=== PATIENT | female | born 1995 ===

== ENCOUNTER 2020-07-31 09:57 | Outpatient (REF) | payer OTHER, SELFPAY ==
[2020-07-31 16:00] LABS: CT PCR NOT DETECTED (Not Detect.); NG PCR NOT DETECTED (Not Detect.)
[2020-08-01 12:18] LABS: BV Int Neg Control Negative (Negative); BV Int Pos Control Positive (Positive)
== END 2020-07-31 09:58 | disposition home or self-care (01) ==
LOC: HO.LNP 09:57
PROVIDERS: PCP Internal Medicine; Referring Provider Internal Medicine; Visit Provider Obstetrics & Gynecology
DX: O99.211 Obesity complicating pregnancy, first trimester (principal); O34.219 Maternal care for unspecified type scar from previous cesarean delivery; Z3A.12 12 weeks gestation of pregnancy
CPT/HCPCS: 87480; 87491; 87510; 87591; 87660

== ENCOUNTER 2020-08-03 10:26 | Outpatient (REF) | payer OTHER, SELFPAY ==
--- NOTE | 2020-08-03 10:56 | US_ITS ---
EXAMINATION: OBSTETRICAL ULTRASOUND, FIRST TRIMESTER HISTORY: 25-year-old with unknown LMP NT screening COMPARISON: 11/14/2019 TECHNIQUE: Real time transabdominal imaging with color and M-mode Doppler. FINDINGS: A single, live IUP CRL of 56.4 mm c/w 12.2wks is noted. Heart Rate: 151 beats per minute. Normal yolk sac seen. NT was 1.5.mm. NB Present The embryo appears sonographically wnl for this GA. Both maternal ovaries are seen and appear normal. GESTATIONAL AGE: 1. Established GA: N/A wks 2. GA from [facility]: 12.2 wks ESTIMATED DATE OF DELIVERY: 1. Established DOUGLAS: N/A 2. DOUGLAS from [facility]: 02/13/2021 IMPRESSION: 1. A single live IUP 2. CRL consistent with 12.2 weeks of gestation giving her an DOUGLAS of the 02/13/2021. 3. Normal nuchal translucency MFM Consultation: I reviewed the ultrasound findings along with significance of NT measurement. The NT of less than 3mm is generally reassuring. However, the sensitivity for T21 detection is only 60%. I reviewed the availability of serum aneuploidy screening which includes cell-free DNA and placental protein based tests. I discussed the sensitivity, false-positive rate, and other limitations associated with each test. I also reviewed the availability of invasive diagnostic tests that are associated small but definite risk of miscarriage. We also reviewed the differences between screening tests and diagnostic tests. After our discussion, she opted for the First trimester screening that is based on cell-free DNA or non-invasive testing (NIPT). The result will be faxed to your office in approximately 7 days. A follow up at 18 weeks for survey has been scheduled. Thank you very much for this referral. Majority of this visit was spent reviewing her care and counselling her in face to face time: Time spent 20 min.
== END 2020-08-03 10:27 | disposition home or self-care (01) ==
LOC: HO.US 10:26
PROVIDERS: PCP Internal Medicine; Visit Provider Obstetrics & Gynecology
DX: Z34.81 Encounter for supervision of other normal pregnancy, first trimester (principal); Z36.82 Encounter for antenatal screening for nuchal translucency; Z3A.12 12 weeks gestation of pregnancy
CPT/HCPCS: 76813

== ENCOUNTER → 2020-08-21 10:20 | Outpatient (BNVA) | payer OTHER, SELFPAY | PROVIDERS: PCP Internal Medicine; Visit Provider Obstetrics & Gynecology | DX: Z76.89 Persons encountering health services in other specified circumstances (principal) ==

== ENCOUNTER → 2020-09-18 09:54 | Outpatient (BNVA) | payer OTHER, SELFPAY | PROVIDERS: Visit Provider Advanced Practice Midwife | DX: Z76.89 Persons encountering health services in other specified circumstances (principal) ==

== ENCOUNTER 2020-09-20 13:17 | Outpatient (REF) | payer OTHER, SELFPAY | END 2020-09-20 13:18 | disposition home or self-care (01) | LOC: HO.LAB 13:17 | PROVIDERS: PCP Internal Medicine; Visit Provider Internal Medicine | DX: Z20.828 Contact with and (suspected) exposure to other viral communicable diseases (principal) | CPT/HCPCS: C9803; U0003 ==

== ENCOUNTER 2020-10-05 09:53 | Outpatient (REF) | payer OTHER, SELFPAY ==
--- NOTE | 2020-10-05 09:57 | US_ITS ---
EXAMINATION: US OBSTETRICAL CLINICAL INFORMATION: 25-year-old at 21.2 weeks of gestation Suspected anomaly Size date discrepancy COMPARISON: 08/03/2020 TECHNIQUE: Real-time transabdominal ultrasound was performed using C1-5 megahertz transducer. FINDINGS: A single, active, fetus is seen in breech presentation. The placenta is posterior without previa, and the amniotic fluid volume is wnl. MEASUREMENTS: 1. Biparietal Diameter: 5.0 cm; 21.1 wks 2. Occipital Frontal Diameter: 6.4 cm 3. Head Circumference: 18.2 cm; 20.5 wks 4. Abdominal Circumference: 17.5 cm; 22.4 wks 5. Femur Length: 3.7 cm; 21.6 wks 6. Humerus Length: 3.64 cm; 22.5 wks 7. Tibia Length: 2.93 cm; 20.5 wks 8. Ulna Length: 3.6 cm; 23.6 wks 9. Lateral ventricle: 0.79 cm 10. Cerebellum: 2.1 cm; 20.6 wks 11. Cisterna Magna: 0.90 cm 12. Nuchal Fold: 3.8 mm 13. Heart Rate: 142 beats per minute Rt ovary: normal Lt ovary: normal Cervical length 3.7 cm on T/A. GESTATIONAL AGE: 1. Established GA: 21.2 wks 2. [facility]: 21.4 wks ESTIMATED DATE OF DELIVERY: 1. Established DOUGLAS: 02/13/2021 2. [facility]AS [facility] 02/11/2021 ANATOMY: survey was limited due to maternal body habitus and position. Visualization of the intracranial anatomy, nose, lips, profile, aortic and ductal arches were suboptimal. In addition bilateral hands were suboptimally seen. The visualized anatomy includes but not limited to: 1. Cranium: Normal 2. Intracranial anatomy: Suboptimal intracranial anatomy 3. face: Suboptimal 4. Heart: four-chamber view of the heart, ventricular septum, foramen ovale, pulmonary vein, left and right outflow tracts, three-vessel view, 3 vessel trachea view. 5. Diaphragm: Normal 6. Abdominal wall: Normal 7. Cord Insertion: Normal 8. Spine: Cervical, thoracic, lumbar, sacral. 9. Stomach: Normal size and shape 10. Right Kidney: Normal 11. Left Kidney: Normal 12. 3 vessel cord: Normal 13. Upper extremity: Hands were suboptimally seen 14. Lower extremity: Tibia, fibula, bilateral feet. 15. Bladder: Normal 16. Genitalia: Male, patient aware US/US OB /maternal detail IMPRESSION: 1. Single, living, intrauterine with appropriate biometry. 2. Limited survey due to maternal body habitus and position. No abnormalities were seen in visualized anatomy. DISCUSSION: I reviewed today's ultrasound findings. We discussed the limitations of ultrasound in diagnosing aneuploidy and other congenital abnormalities. I reviewed the differences between screening test and diagnostic test. Amniocentesis was discussed and declined. She was informed that the baseline incidence of congenital abnormalities is approximately 3-5%. Not all these conditions are diagnosable in utero. RECOMMENDATIONS: 1. A follow-up in 2-3 weeks is been scheduled. Thank you for allowing me to participate in her care. Visiting time 25 minutes. Majority of this visit was spent reviewing and discussing her care.
== END 2020-10-05 09:54 | disposition home or self-care (01) ==
LOC: HO.US 09:53
PROVIDERS: PCP Internal Medicine; Visit Provider Obstetrics & Gynecology
DX: O09.622 Supervision of young multigravida, second trimester (principal); Z36.3 Encounter for antenatal screening for malformations
CPT/HCPCS: 76811

== ENCOUNTER 2020-10-15 11:10 | Outpatient (REF) | payer OTHER, SELFPAY ==
[2020-10-15 16:26] LABS: Glucose 1 Hour 112 mg/dL
== END 2020-10-15 11:11 | disposition home or self-care (01) ==
LOC: HO.LAB 11:10
PROVIDERS: Obstetrics & Gynecology; PCP Internal Medicine; Visit Provider Advanced Practice Midwife
DX: O99.210 Obesity complicating pregnancy, unspecified trimester (principal)
CPT/HCPCS: 82951; 99212

== ENCOUNTER 2020-10-26 10:51 | Outpatient (REF) | payer OTHER, SELFPAY ==
--- NOTE | 2020-10-26 10:30 | US_ITS ---
EXAMINATION: OBSTETRICAL ULTRASOUND, Follow up HISTORY: 25-year-old at the 24.2 weeks of gestation Follow-up anatomy Size date discrepancy COMPARISON: 10/05/2020 TECHNIQUE: Real time transabdominal imaging with color and M-mode Doppler. PRESENTATION: Vertex PLACENTA LOCATION: Posterior without previa AMNIOTIC FLUID: Normal MEASUREMENTS: 1. Biparietal Diameter: 6.0 cm; 24.5 wks 2. Head Circumference: 22.8 cm; 24.6 wks 3. Abdominal Circumference: 21.97 cm; 26.3 wks 4. Femur Length: 4.4 cm; 24.4 wks 5. Heart Rate: 140 beats per minute WEIGHT: Estimated weight is 813 grams (1 lbs 13 oz) -- 90 %. Normal views of lateral cerebral ventricle, fourth ventricle, profile, nose/lips, 4ch view, LVOT, RVOT, hands, and legs. GESTATIONAL AGE: 1. Established GA: 24.2 wks 2. GA from [facility]: 25.1 wks ESTIMATED DATE OF DELIVERY: 1. Established DOUGLAS: 02/13/2021 2. DOUGLAS from [facility]: 02/07/2021 US/US OB follow up IMPRESSION: 1. A single fetus with appropriate interval growth. 2. Previously limited views of the anatomy were seen as listed above. No abnormalities were noted in visualized anatomy. 3. This completes the survey. I reviewed the limitations of ultrasound in diagnosing aneuploidy and other congenital abnormalities. Amniocentesis was again reviewed and she declined. She was informed that the baseline instance of congenital abnormalities and defects in the general population is approximately 3-5%. Not all these conditions are diagnosable in utero. RECOMMENDATIONS: 1. f/u PRN Thank you very much for this referral.
== END 2020-10-26 10:52 | disposition home or self-care (01) ==
LOC: HO.US 10:51
PROVIDERS: Visit Provider Obstetrics & Gynecology
DX: O99.212 Obesity complicating pregnancy, second trimester (principal); O26.842 Uterine size-date discrepancy, second trimester; Z3A.24 24 weeks gestation of pregnancy
CPT/HCPCS: 76816

== ENCOUNTER → 2020-10-29 10:22 | Outpatient (BNVA) | payer OTHER, SELFPAY | PROVIDERS: PCP Internal Medicine; Visit Provider Advanced Practice Midwife | DX: O09.622 Supervision of young multigravida, second trimester (principal) | CPT/HCPCS: 81003; 90686; 99212 ==

== ENCOUNTER 2020-11-22 10:11 | Outpatient (REF) | payer OTHER, SELFPAY ==
[2020-11-22 12:21] LABS: Hematocrit 31.3 % (37-47); Mean Corpuscular HGB Conc 31.9 g/dl (31.0-35.0); Mean Corpuscular Volume 87.7 fL (80-98); Mean Platelet Volume 11.4 fL (9.4-12.3); Platelet Count 230 X10*3/uL (160-400); Red Blood Count 3.57 X10*6/uL (4.20-5.50); Red Cell Distribution Width 13.4 % (11.0-16.0)
[2020-11-22 12:42] LABS: Glucose 1 Hour PP 50gm Dose 128 mg/dL (60-140)
[2020-11-23 08:30] LABS: HIV AB/AG Nonreactive (Nonreactive); HIV Num 1 0.21 S/CO (0.00-0.99)
[2020-11-23 09:15] LABS: Syphilis Screen Nonreactive (Nonreactive)
== END 2020-11-22 10:12 | disposition home or self-care (01) ==
LOC: HO.LAB 10:11
PROVIDERS: PCP Internal Medicine; Visit Provider Advanced Practice Midwife
DX: O09.622 Supervision of young multigravida, second trimester (principal); Z3A.00 Weeks of gestation of pregnancy not specified
CPT/HCPCS: 36415; 85027; 86780; 87389

== ENCOUNTER → 2020-11-26 10:38 | Outpatient (BNVA) | payer OTHER, SELFPAY | PROVIDERS: PCP Internal Medicine; Visit Provider Obstetrics & Gynecology | DX: O34.219 Maternal care for unspecified type scar from previous cesarean delivery (principal); O09.622 Supervision of young multigravida, second trimester | CPT/HCPCS: 90471; 90715; 99212 ==

== ENCOUNTER 2020-11-30 10:10 | Outpatient (REF) | payer OTHER, SELFPAY ==
--- NOTE | ~2020-11-30 | US_ITS ---
EXAMINATION: OBSTETRICAL ULTRASOUND, Follow up HISTORY: 25-year-old at the 29.2 weeks of gestation Size date discrepancy COMPARISON: 10/26/2020 TECHNIQUE: Real time transabdominal imaging with color and M-mode Doppler. PRESENTATION: Vertex PLACENTA LOCATION: Posterior without previa AMNIOTIC FLUID: JUANY 9.8 cm MEASUREMENTS: 1. Biparietal Diameter: 7.1 cm; 31.3 wks 2. Head Circumference: 28.1 cm; 30.6 wks 3. Abdominal Circumference: 26.5 cm; 30.5 wks 4. Femur Length: 5.5 cm; 29.0 wks 5. Heart Rate: 144 beats per minute WEIGHT: EFW: 1525 grams (3 lbs 6 oz) -- 7 0 %. BIOPHYSICAL PROFILE: Motion: 2 Tone: 2 Breathin Amniotic Fluid: 2 Total score: 8/8 GESTATIONAL AGE: 1. Established GA: 29.2 wks 2. GA from A: 30.4 wks ESTIMATED DATE OF DELIVERY: 1. Established DOUGLAS: 02/13/2021 2. DOUGLAS from [facility]: 02/04/2021 US/US OB follow up IMPRESSION: 1. A single active fetus is in vertex presentation 2. Size equals dates 3. Reassuring biophysical profile with normal amniotic fluid index Thank you very much for this referral.
== END 2020-11-30 10:11 | disposition home or self-care (01) ==
LOC: HO.US 10:10
PROVIDERS: PCP Internal Medicine; Visit Provider Obstetrics & Gynecology
DX: O34.219 Maternal care for unspecified type scar from previous cesarean delivery (principal); O26.843 Uterine size-date discrepancy, third trimester; Z3A.29 29 weeks gestation of pregnancy
CPT/HCPCS: 76816

== ENCOUNTER → 2020-12-10 10:34 | Outpatient (BNVA) | payer OTHER, SELFPAY | PROVIDERS: PCP Internal Medicine; Visit Provider Advanced Practice Midwife | DX: O34.219 Maternal care for unspecified type scar from previous cesarean delivery (principal); O09.622 Supervision of young multigravida, second trimester; O99.210 Obesity complicating pregnancy, unspecified trimester; O99.019 Anemia complicating pregnancy, unspecified trimester | CPT/HCPCS: 81003; 99212 ==

== ENCOUNTER → 2020-12-24 10:42 | Outpatient (BNVA) | payer OTHER, SELFPAY | PROVIDERS: PCP Internal Medicine; Visit Provider Advanced Practice Midwife | DX: O09.622 Supervision of young multigravida, second trimester (principal); Z3A.32 32 weeks gestation of pregnancy | CPT/HCPCS: 81003; 99212 ==

== ENCOUNTER → 2021-01-11 14:03 | Outpatient (BNVA) | payer OTHER, SELFPAY | PROVIDERS: PCP Internal Medicine; Visit Provider Obstetrics & Gynecology | DX: O34.219 Maternal care for unspecified type scar from previous cesarean delivery (principal); Z3A.35 35 weeks gestation of pregnancy | CPT/HCPCS: 99212 ==

== ENCOUNTER 2021-01-21 10:46 | Outpatient (REF) | payer OTHER, SELFPAY ==
[2021-01-22 10:00] LABS: CT PCR NOT DETECTED (Not Detect.); NG PCR NOT DETECTED (Not Detect.)
== END 2021-01-21 10:47 | disposition home or self-care (01) ==
LOC: HO.LAB 10:46
PROVIDERS: PCP Internal Medicine; Visit Provider Advanced Practice Midwife
DX: O09.93 Supervision of high risk pregnancy, unspecified, third trimester (principal); O99.213 Obesity complicating pregnancy, third trimester; O34.219 Maternal care for unspecified type scar from previous cesarean delivery; Z3A.36 36 weeks gestation of pregnancy
CPT/HCPCS: 81003; 87081; 87491; 87591; 99212

== ENCOUNTER → 2021-01-28 13:43 | Outpatient (BNVA) | payer OTHER, SELFPAY | PROVIDERS: PCP Internal Medicine; Visit Provider Advanced Practice Midwife | DX: O09.623 Supervision of young multigravida, third trimester (principal); Z3A.37 37 weeks gestation of pregnancy | CPT/HCPCS: 99212 ==

== ENCOUNTER → 2021-02-20 13:28 | Outpatient (BNVA) | payer OTHER, SELFPAY | PROVIDERS: Visit Provider Advanced Practice Midwife | DX: O99.345 Other mental disorders complicating the puerperium (principal); F53.0 Postpartum depression; Z3A.41 41 weeks gestation of pregnancy | CPT/HCPCS: 99212 ==

== ENCOUNTER → 2021-04-01 13:49 | Outpatient (BNVA) | payer OTHER, SELFPAY | PROVIDERS: Visit Provider Advanced Practice Midwife | DX: Z39.1 Encounter for care and examination of lactating mother (principal) | CPT/HCPCS: 99212 ==

== ENCOUNTER → 2021-04-09 14:02 | Outpatient (BNVA) | payer OTHER, SELFPAY | PROVIDERS: Visit Provider Advanced Practice Midwife | DX: Z30.017 Encounter for initial prescription of implantable subdermal contraceptive (principal) | CPT/HCPCS: 11981; 81025 ==

== ENCOUNTER → 2021-07-04 08:35 | Outpatient (BNVA) | payer OTHER, SELFPAY | PROVIDERS: PCP Internal Medicine; Referring Provider Internal Medicine; Visit Provider Internal Medicine | DX: Z39.2 Encounter for routine postpartum follow-up (principal); R07.2 Precordial pain | CPT/HCPCS: 93005; 99202 ==

== ENCOUNTER → 2021-08-09 15:34 | Outpatient (BNVA) | payer OTHER, SELFPAY | PROVIDERS: Visit Provider Advanced Practice Midwife | DX: Z30.46 Encounter for surveillance of implantable subdermal contraceptive (principal); Z91.013 Allergy to seafood | CPT/HCPCS: 99212 ==

== ENCOUNTER 2021-08-29 14:14 | Outpatient (REF) | payer OTHER, SELFPAY ==
--- NOTE | ~2021-08-29 | XR_ITS ---
EXAMINATION: XR ELBOW, LEFT CLINICAL INFORMATION: Pain COMPARISON: None TECHNIQUE: AP, lateral, and oblique views of the left elbow. FINDINGS: Bone alignment is normal. No fracture or dislocation is seen. The joint spaces are normal. There is no joint effusion. There is a 40 x 2 mm rectangular radiopaque density that projects over the soft tissues of the posterior medial upper arm. Presumably this represents something on the patient's skin or clothing. Soft tissue foreign body cannot be excluded and clinical correlation is recommended. XR/XR elbow LT min 3V IMPRESSION: Normal left elbow. 0.2 x 4 cm radiopaque linear density projecting over the soft tissues of the posterior medial upper arm. Clinical correlation recommended.
== END 2021-08-29 14:15 | disposition home or self-care (01) ==
LOC: HO.XRAY 14:14
PROVIDERS: PCP Internal Medicine; Visit Provider Internal Medicine
DX: M25.522 Pain in left elbow (principal)
CPT/HCPCS: 73080

== ENCOUNTER → 2021-09-25 14:08 | Outpatient (BNVA) | payer OTHER, SELFPAY | PROVIDERS: PCP Internal Medicine; Visit Provider Physician Assistant | DX: M77.02 Medial epicondylitis, left elbow (principal) | CPT/HCPCS: 99202 ==

== ENCOUNTER 2022-03-18 08:54 | Outpatient (REF) | payer OTHER, SELFPAY ==
--- NOTE | ~2022-03-18 | XR_ITS ---
EXAMINATION: XR HAND, RIGHT CLINICAL INFORMATION: Pain in fingers. COMPARISON: Radiographs dated 12/02/2018. TECHNIQUE: PA, lateral, and oblique views of the right hand. FINDINGS: The bones and soft tissues are normal. No fracture. Alignment is anatomic. Joint spaces are maintained. No erosions or soft tissue calcifications. XR/XR hand RT min 3V IMPRESSION: Normal right hand.
[2022-03-18 10:05] LABS: Hematocrit 37.2 % (37.0-47.0); Hemoglobin 11.8 g/dl (12.0-16.0); Mean Corpuscular HGB Conc 31.7 g/dl (31.0-35.0); Mean Corpuscular Hemoglobin 27.6 pg (27.0-33.0); Mean Corpuscular Volume 86.9 fL (80.0-98.0); Mean Platelet Volume 11.1 fL (9.4-12.3); Platelet Count 287 X10*3/uL (160-400); Red Blood Count 4.28 X10*6/uL (4.20-5.50); Red Cell Distribution Width 13.4 % (11.0-16.0); White Blood Count 8.5 X10*3/uL (4.8-10.8)
[2022-03-18 10:08] LABS: Appearance Urine HAZY; Color Urine YELLOW; Glucose Urine UA NEG (NEG); Leukocyte Esterase Urine NEG (NEG); Nitrite Urine NEG (NEG); PH 7.5 (5.0-8.0); UACC Culture Trigger NO; Urine Blood TRACE (NEG); Urine Ketones NEG (NEG); Urine Protein NEG (NEG-TRACE)
[2022-03-18 10:40] LABS: Alanine Aminotransferase 18 U/L (0-31); Albumin Level 4.1 g/dL (3.5-5.0); Alkaline Phosphatase 46 U/L (39-117); Anion Gap 11 (12-20); Aspartate Amino Transferase 18 U/L (5-31); Bilirubin Total 0.9 mg/dL (0.0-1.0); Blood Urea Nitrogen 14 mg/dL (9-16); Calcium 9.5 mg/dL (8.4-10.2); Carbon Dioxide 25 mmol/L (22-29); Chloride 109 mmol/L (96-108); Cholesterol 91 mg/dL; Estimated Glomerular Filt Rate > 60; Glucose Fasting 91 mg/dL (60-99); HDL Cholesterol 31 mg/dL; LDL Cholesterol Calculated 54 mg/dl; Potassium 4.9 mmol/L (3.3-5.1); Sodium 140 mmol/L (135-145); Total Protein 7.4 g/dL (6.5-8.0); Triglycerides 30 mg/dL
[2022-03-18 10:47] LABS: Erythrocyte Sedimentation Rate 16 MM/HR (0-20)
[2022-03-18 10:49] LABS: Bacteria Urine TRACE /LPF; RBC Urine 0-2 /HPF (0); Squamous Epithelial Cell Urine 1+ /LPF; WBC Urine 0 /HPF (0-4)
[2022-03-18 10:51] LABS: TSH reflex Free T4 0.39 uIU/mL (0.32-4.0); Vitamin D 25-OH Total 12.4 ng/mL (>30)
== END 2022-03-18 08:55 | disposition home or self-care (01) ==
LOC: HO.LAB 08:54
PROVIDERS: Absent Provider Internal Medicine; PCP Internal Medicine; Visit Provider Nurse Practitioner Family
DX: Z00.00 Encounter for general adult medical examination without abnormal findings (principal); M79.644 Pain in right finger(s); R60.0 Localized edema; E55.9 Vitamin D deficiency, unspecified; R42 Dizziness and giddiness
CPT/HCPCS: 36415; 73130; 80053; 80061; 81001; 82306; 84443; 85027; 85652; 86140

== ENCOUNTER 2022-09-05 11:42 | Outpatient (REF) | payer OTHER, SELFPAY ==
[2022-09-05 14:11] LABS: Hemoglobin 12.4 g/dl (12.0-16.0); Mean Corpuscular HGB Conc 31.8 g/dl (31.0-35.0); Mean Corpuscular Hemoglobin 28.5 pg (27.0-33.0); Mean Corpuscular Volume 89.7 fL (80.0-98.0); Mean Platelet Volume 11.7 fL (9.4-12.3); Platelet Count 317 X10*3/uL (160-400); Red Blood Count 4.35 X10*6/uL (4.20-5.50); Red Cell Distribution Width 13.4 % (11.0-16.0)
[2022-09-05 14:43] LABS: Anion Gap 10 (12-20); Blood Urea Nitrogen 8 mg/dL (9-16); Calcium 9.6 mg/dL (8.4-10.2); Carbon Dioxide 28 mmol/L (22-29); Chloride 107 mmol/L (96-108); Estimated Glomerular Filt Rate > 60; Glucose Random 83 mg/dL (60-115); Potassium 4.7 mmol/L (3.3-5.1); Sodium 140 mmol/L (135-145); Thyroid Stimulating Hormone 0.41 uIU/mL (0.32-4.0)
--- NOTE | 2022-11-19 15:19 | MHC.CARE ---
Referral submitted to CC for pt
== END 2022-09-05 11:43 | disposition home or self-care (01) ==
LOC: HO.HMGCLDS 11:42
PROVIDERS: PCP Internal Medicine; Visit Provider Internal Medicine
DX: R10.9 Unspecified abdominal pain (principal)
CPT/HCPCS: 36415; 80048; 84443; 85027

== ENCOUNTER 2023-05-19 09:26 | Outpatient (AMB) | payer OTHER, SELFPAY ==
--- NOTE | 2023-05-19 09:28 | MHC.OFFVIS ---
Intake Vital Signs 05/19/23 09:32 Height 5 ft 3 in Weight 150 lb 5.684 oz BMI 26.6 BP 109/69 Blood Pressure Location Rt brachial Position Sitting Pulse 67 Intake Visit Reasons: epigastric pain, GERD Intake Note: Patient presents to in office visit today as a new patient for epigastric pain and GERD. CC: Patient c/o epigastric pain, nausea, and feeling that when she tries to throw up a little lump form here from epigastric region. Onset 2-3 months ago. Denies other GI symptoms today. 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 PMX Depression/insomnia Bilateral lower extremity edema Medial epicondylitis of left elbow Recurrent headache *. SURGICAL HISTORY CAESAREAN SECTION * ALLERGIES Seafood * [employer] LABS: none since 08/2022 TODAY'S VISIT Onset of a couple of months of intermittent burning tight pain in the epigastrum. She has food getting stuck at the GE jxn. She has a lot of nausea but when I try to vomit a lump comes out. This in the epigastrum. Thie pain ins worse with eating and better when the stomach is empty - with all foods. This happens about every 2 weeks and will last all day. 10/10 at worst. No new medications, diet changes, or other illness proceeding the symptoms. She does not know if anyone in her family has similar problems, there is a general FHX of cancer she lost a brother to a cancer of unknown origin and her sister has breast cancer on the paternal side. Brother was 32 y /o. She will be visiting family soon and will seek more information. Her mother and 2 sisters both have had cholecystectomies. She tried avoiding fatty foods and her sx are worse with greasy foods. She has chronic CIC intermittently but lately she has been moving her bowels normally. She was on omeprazole 20mg which helped a little and then she ran out. She has not gained or lost weight of consequence. She struggles with depression/anxiety. Start omeprazole 40mg bid, but in case insurance does not cover bid will also give famotidine. Will get some basic labs, an H pylori breath test, and ultrasound and a barium swallow to further investigate the symptoms. ROV 6 weeks. PFSH Medical History Anxiety and depression Depression Exertional chest pain Exertional dyspnea Family history of brain aneurysm GERD (gastroesophageal reflux disease) Insomnia Overweight (BMI 25.0-29.9) Recurrent headache Surgical History History of delivery Family History Mother No problems noted. Father No problems noted. 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 Gender identity: Female Cognitive needs: No Hearing needs: No Vision needs: No Female Reproductive History Menstrual Age of Menarche: 11 Review of Systems Const Denies fatigue, Denies fever(s), Denies night sweats, Denies poor appetite and Denies weight loss ENT Reports Normal hearing present, Denies dental pain, Reports dysphagia, Denies hearing loss, Denies mouth pain, Denies odynophagia, Denies throat swelling, Denies tongue swelling and Reports other (Dentition adequate) Card Reports no additional complaints Resp Reports no additional complaints GI Reports abdominal pain, Denies melena, Denies bloating, Denies hematochezia, Reports constipation, Denies GI cramping, Reports dysphagia, Denies excessive flatus, Denies early satiety, Reports heartburn, Denies diarrhea, Denies nausea, Denies odynophagia, Denies vomiting and Denies hematemesis Skin/Breast Denies pruritus, Denies lesions, Denies rash and Denies jaundice Neuro Reports Normal hearing present and Denies Abnormal speech present Psych Reports anxiety, Reports depression, Denies homicidal ideation and Denies suicidal ideation Endo Denies fatigue Aller/Immun Denies throat swelling and Denies tongue swelling Physical Exam Vital Signs: Last Vital Signs Pulse 67 05/19/23 09:32 BP 109/69 05/19/23 09:32 BMI result Body Mass Index 26.6 Const General: cooperative, no acute distress, well developed and well groomed Nutritional Appearance: average body habitus and well nourished Orientation/consciousness: oriented to person, oriented to place and oriented to time Limitations: No language barrier HEENT Head: Yes normocephalic and Yes atraumatic Eyes General: appearance normal, both eyes and all related structures Pupils: Equal, round and reactive pupils present Neck Neck: Yes normal visual inspection and Yes no lymphadenopathy Thyroid: Thyroid normal Resp Effort & Inspection: normal respiratory effort and able to speak in complete sentences Auscultation: clear to auscultation bilaterally Cardio Rate: regular rate Rhythm: regular rhythm Heart sounds: Normal, physiologic split S2 sound present Peripheral pulses: radial pulses present and posterior tibial pulses present GI Inspection: No distended, No Abdominal panniculus present, Yes scar and Yes striae Palpation (GI): Soft to palpation, nontender, no guarding, not rigid and No hepatosplenomegaly present Percussion: Yes normal to percussion Auscultation: normal bowel sounds Rectal Exam - Female: deferred Abdomen image: 1. well healed scar Skin General skin exam: no rashes or lesions noted, turgor normal, skin not dry, no jaundice, No spider nevi and no striae Rashes: no rashes Nails: normal Neuro General: oriented to person, oriented to place and oriented to time Cranial nerves: Yes Equal, round and reactive pupils present and Yes Normal hearing present Speech: No Abnormal speech present Extrem General: Yes normal to inspection, No clubbing, No cyanosis and No edema Psych Appearance: grossly normal and well kempt Mental Status: mental status grossly normal Speech and movement: Normal speech and movement present Affect: normal affect Attitude: cooperative Thought process: Normal thought process present and not confabulating Thought content: Normal thought content present Insight: Limited insight present (Psych) Judgement: Limited judgement present (Psych) Assessment & Plan Assessment & Plan (1) GERD (gastroesophageal reflux disease): Code(s): K21.9 - Gastro-esophageal reflux disease without esophagitis Plan: Onset of a couple of months of intermittent burning tight pain in the epigastrum. She has food getting stuck at the GE jxn. She has a lot of nausea but when I try to vomit a lump comes out. This in the epigastrum. Thie pain ins worse with eating and better when the stomach is empty - with all foods. This happens about every 2 weeks and will last all day. 10/10 at worst. No new medications, diet changes, or other illness proceeding the symptoms. She does not know if anyone in her family has similar problems, there is a general FHX of cancer she lost a brother to a cancer of unknown origin and her sister has breast cancer on the paternal side. Brother was 32 y /o. She will be visiting family soon and will seek more information. Her mother and 2 sisters both have had cholecystectomies. She tried avoiding fatty foods and her sx are worse with greasy foods. She has chronic CIC intermittently but lately she has been moving her bowels normally. She was on omeprazole 20mg which helped a little and then she ran out. She has not gained or lost weight of consequence. She struggles with depression/anxiety. Start omeprazole 40mg bid, but in case insurance does not cover bid will also give famotidine. Will get some basic labs, an H pylori breath test, and ultrasound and a barium swallow to further investigate the symptoms. ROV 6 weeks. (2) Epigastric pain: Code(s): R10.13 - Epigastric pain (3) Abdominal pain: Code(s): R10.9 - Unspecified abdominal pain (4) Dysphagia: Code(s): R13.10 - Dysphagia, unspecified Orders: Orders Comprehensive Met. Panel Today R10.13 - Epigastric pain, R10.9 - Unspecified abdominal pain Complete Blood Count Auto Diff Today R10.13 - Epigastric pain, R10.9 - Unspecified abdominal pain H Pylori Breath Test Today R10.13 - Epigastric pain, R10.9 - Unspecified abdominal pain US abdomen complete Today R10.13 - Epigastric pain, R10.9 - Unspecified abdominal pain FL barium swallow Today R13.10 - Dysphagia, unspecified Medications: New omeprazole 40 mg PO BID 30 days 60 caps 3RF famotidine (Pepcid) 40 mg PO BEDTIME 30 tabs 6RF K21.9 - Gastro-esophageal reflux disease without esophagitis, R13.10 - Dysphagia, unspecified Coding Level of Care Code New Pt Level 3 (79888) Diagnoses GERD (gastroesophageal reflux disease) K21.9 Epigastric pain R10.13 Abdominal pain R10.9 Dysphagia R13.10
[2023-05-19 09:32] VITALS: BP 109/69; PULSE 67; BMI 26.6
== END 2023-05-19 10:40 | disposition home or self-care (01) ==
PROVIDERS: PCP Internal Medicine; Visit Provider Nurse Practitioner
DX: K21.9 Gastro-esophageal reflux disease without esophagitis (principal); R10.13 Epigastric pain; R10.9 Unspecified abdominal pain; R13.10 Dysphagia, unspecified
CPT/HCPCS: 99203

== ENCOUNTER 2023-05-19 09:26 | Outpatient (REF) | payer OTHER, SELFPAY ==
[2023-05-20 18:38] LABS: H Pylori Breath Test Positive (Negative)
== END 2023-05-19 09:27 | disposition home or self-care (01) ==
LOC: HO.LNP 09:26
PROVIDERS: PCP Internal Medicine; Visit Provider Nurse Practitioner
DX: K21.9 Gastro-esophageal reflux disease without esophagitis (principal); R10.13 Epigastric pain; R10.9 Unspecified abdominal pain; R13.10 Dysphagia, unspecified
CPT/HCPCS: 83013; 99202

== ENCOUNTER 2023-05-21 09:21 | Outpatient (REF) | payer OTHER, SELFPAY ==
[2023-05-21 09:50] LABS: MANUAL DIFF FLAG NO
[2023-05-21 10:29] LABS: Basophils Percent Auto 0.3 % (0-2); Eosinophils Absolute Auto 0.2 X10*3/uL (0.0-0.4); Eosinophils Percent Auto 1.9 % (0-4); Hematocrit 39.6 % (37.0-47.0); Hemoglobin 12.7 g/dl (12.0-16.0); Imm Gran Abs Auto 0.05 X10*3/uL (0.00-0.03); Imm Gran Pct Auto 0.6 % (0.0-0.4); Lymphocytes Absolute Auto 1.9 X10*3/uL (1.2-4.9); Lymphocytes Percent Auto 21.4 % (20-40); Mean Corpuscular HGB Conc 32.1 g/dl (31.0-35.0); Mean Corpuscular Hemoglobin 29.3 pg (27.0-33.0); Mean Corpuscular Volume 91.5 fL (80.0-98.0); Mean Platelet Volume 11.2 fL (9.4-12.3); Monocytes Absolute Auto 0.5 X10*3/uL (0.1-1.2); Monocytes Percent Auto 5.6 % (2-11); Neutrophils Absolute Auto 6.4 x10*3/uL (2.0-8.3); Neutrophils Percent Auto 70.2 % (45-73); Platelet Count 247 X10*3/uL (160-400); Red Blood Count 4.33 X10*6/uL (4.20-5.50); Red Cell Distribution Width 13.4 % (11.0-16.0); White Blood Count 9.1 X10*3/uL (4.8-10.8)
[2023-05-21 11:10] LABS: Alanine Aminotransferase 14 U/L (0-31); Albumin Level 4.3 g/dL (3.5-5.0); Alkaline Phosphatase 50 U/L (39-117); Anion Gap 13 (12-20); Aspartate Amino Transferase 16 U/L (5-31); Bilirubin Total 0.7 mg/dL (0.0-1.0); Blood Urea Nitrogen 13 mg/dL (9-16); Calcium 9.3 mg/dL (8.4-10.2); Carbon Dioxide 23 mmol/L (22-29); Chloride 108 mmol/L (96-108); Estimated Glomerular Filt Rate > 60; Glucose Random 80 mg/dL (60-115); Potassium 4.5 mmol/L (3.3-5.1); Sodium 139 mmol/L (135-145); Total Protein 7.7 g/dL (6.5-8.0)
== END 2023-05-21 09:22 | disposition home or self-care (01) ==
LOC: HO.LAB 09:21
PROVIDERS: PCP Internal Medicine; Visit Provider Nurse Practitioner
DX: R10.13 Epigastric pain (principal)
CPT/HCPCS: 36415; 80053; 85025

== ENCOUNTER 2023-05-29 07:02 | Outpatient (AMB) | payer OTHER, SELFPAY ==
--- NOTE | 2023-05-29 07:03 | A.OFFPC_ITS ---
Vital Signs 05/29/23 07:04 Height 5 ft 3 in Weight 150 lb BMI 26.6 BP 114/62 Blood Pressure Location Lt brachial Position Sitting Pulse 59 Pulse Source Pulse Oximeter Pulse Oximetry (%) 97 Oxygen Delivery Method Room Air Intake Visit Reasons: pain right ankle Allergies No Known Drug Allergies Allergy (Unknown, Verified 05/29/23 07:04) Unknown SEAFOOD Allergy (Unknown, Uncoded 05/29/23 07:04) RASH Tobacco use date assessed: 02/24/23 Dental Screening Dental Screen Date: 05/29/23 Did you have a dental visit in the last 12 months?: Yes Did you have a dental problem in the last 6 months where you did not have access to dental care?: No Was dental information given to patient?: Patient has dentist HPI HPI Comments History of Present Illness0 Details 28-year-old female past medical history of depression, GERD and insomnia.?Patient of Dr. Bailey, patient presents today for same-day visit right ankle pain x 2 weeks. Patient unsure if she possibly twisted her ankle the wrong way. Patient complaining of pain to the medial side of posterior ankle, mild soft tissue swelling noted, no erythema or warmth. Patient reports pain is a 10/10 like a pulling pain. Patient states tried [id number] Tylenol and ibuprofen with minimal relief of pain. [facility] Medical History Anxiety and depression Depression Exertional chest pain Exertional dyspnea Family history of brain aneurysm GERD (gastroesophageal reflux disease) Insomnia Overweight (BMI 25.0-29.9) Recurrent headache Surgical History History of delivery Family History Mother No problems noted. Father No problems noted. 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 1. Little interest or pleasure in doing things: several days 2. Feeling down, depressed, or hopeless: several days 3. Trouble falling or staying asleep, or sleeping too much: several days 4. Feeling tired or having little energy: several days 5. Poor appetite or overeating: not at all 6. Feeling bad about yourself - or that you are a failure or have let yourself or your family down: not at all 7. Trouble concentrating on things, such as reading the newspaper or watching television: not at all 8. Moving or speaking so slowly that other people could have noticed. Or the opposite - being so fidgety or restless that you have been moving around a lot more than usual: not at all 9. Thoughts that you would be better off or of hurting yourself in some w ay: not at all Total score: 4 Depression Screening Interpretation: Positive (Rx helping) Depression Screening Follow-up: Existing condition and In treatment 29371 - PHQ-9 Billing: Yes Source: Developed by Drs. Raúl Barraza, Maryann Mane, Speedy Cota and colleagues, with an educational carlos from [employer] Thrive Questionnaire Date Thrive assessed: 02/24/23 AUDIT C Alcohol Use Questionnaire (AUDIT-C) 1. How often do you have a drink containing alcohol?: Never 3. How often do you have six or more drinks on one occasion?: Never Total Score: 0 Score Reviewed/Action Taken: Yes GT-7 AMB Questionnaire GT-7 Date GT - 7 assessed: 02/24/23 Source: Developed by Drs. Ralú Barraza, Speedy Agosto and colleagues, with an educational carlos from [employer] Review of Systems Const Denies chills, Denies fatigue, Denies fever(s) and Denies poor appetite Eyes Denies no additional complaints ENT Reports Normal hearing present Card Denies chest pain, Denies syncope, Denies rapid heart rate and Denies dyspnea Resp Denies cough and Denies dyspnea GI Denies change in stool character, Denies constipation, Denies diarrhea, Denies nausea and Denies vomiting Denies urinary frequency, Denies dysuria and Denies urinary urgency Musc Reports arthralgias (right ankle pain ) Neuro Reports Normal hearing present, Denies confusion and Denies syncope Psych Denies confusion Endo Denies fatigue Physical exam (Primary Care) Vital Signs: Oxygen Delivery Method Room Air 05/29/23 07:04 Tobacco/Smoking Status: Tobacco use Status Tobacco use date assessed 02/24/23 02/24/23 15:05 Patient Tobacco Use Status Never used Tobacco 02/24/23 15:05 e-Cigarette/Vaping Use Never Used 02/24/23 15:05 Depression Screening Interpretation: Positive (Rx helping) Depression Screening Follow-up: Existing condition and In treatment Thrive Assessment: Date of Thrive Assessment Date Thrive assessed 02/24/23 02/24/23 15:05 Const General: No confusion Orientation/consciousness: No confusion HENMT Head: Yes normocephalic and Yes atraumatic Eyes Conjunctivae: conjunctivae normal Chest Chest palpation & inspection: normal inspection of the chest Resp Effort & Inspection: normal respiratory effort Auscultation: clear to auscultation bilaterally, no crackles, no rhonchi and no wheezes Cardio Rate: regular rate Rhythm: regular rhythm Heart sounds: S1 normal heart sound present and S2 normal heart sound present GI Inspection: Yes normal to inspection Neuro General: No confusion Cranial nerves: Yes Normal hearing present Extrem General: No edema Right lower extremity: normal to inspection and ankle Details: tenderness Location: of the anterior talofibular ligament, swelling (mild soft tissue swelling ) Details: laterally and abnormal ROM Details: pain with active ROM and pain with passive ROM; no unusual warmth, no ecchymosis and no crepitus Left lower extremity: normal to inspection and full ROM Assessment and Plan Assessment & Plan (1) Acute right ankle pain: Code(s): M25.571 - Pain in right ankle and joints of right foot Plan: Likely related to right ankle strain, will obtain x-rays to rule out acute injury. Ibuprofen 600 mg t.i.d. as needed for pain and inflammation sent to patient's pharmacy. Please take medication with food to avoid GI upset. Patient advised to hold taking her bismuth while on ibuprofen. Patient educated on RICE therapy. Signs and symptoms reviewed with patient when to follow-up with PCP or seek medical attention. Plan Keep scheduled follow-up with PCP or follow-up sooner if needed. Orders: Orders XR ankle RT 2V Today M25.571 - Pain in right ankle and joints of right foot Medications: New ibuprofen 600 mg PO Q8H PRN 20 tabs 0RF pain M25.571 - Pain in right ankle and joints of right foot Coding Level of Care Code Est Pt Level 3 (45081) Diagnoses Acute right ankle pain M25.571
[2023-05-29 07:04] VITALS: BP 114/62; PULSE 59; O2SAT 97; BMI 26.6
== END 2023-05-29 07:43 | disposition home or self-care (01) ==
PROVIDERS: PCP Internal Medicine; Visit Provider Nurse Practitioner Family
DX: M25.571 Pain in right ankle and joints of right foot (principal)
CPT/HCPCS: 99213

== ENCOUNTER → 2023-06-30 10:43 | Outpatient (BNVA) | payer OTHER, SELFPAY | PROVIDERS: PCP Internal Medicine; Visit Provider Nurse Practitioner ==

== ENCOUNTER 2023-07-02 11:02 | Outpatient (AMB) | payer OTHER, SELFPAY ==
--- NOTE | 2023-07-02 11:07 | MHC.OFFVIS ---
Intake Vital Signs 07/02/23 11:08 Height 5 ft 3 in Weight 149 lb 7.574 oz BMI 26.5 BP 112/68 Blood Pressure Location Rt brachial Position Sitting Pulse 71 Intake Visit Reasons: Follow up H pylori Intake Note: Patient presents to in office visit today in follow up of H pylori. CC: Patient with c/o epigastric pain, nausea, and lump from epigastric region. Pt states she has about two more days of abx to complete course. Mr Teacher Required: No Accompanied by: Self / Same As Patient Allergies No Known Drug Allergies Allergy (Unknown, Verified 07/02/23 11:12) Unknown SEAFOOD Allergy (Unknown, Uncoded 05/29/23 07:04) RASH HPI Follow up H pylori HPI Details Assessment & Plan (1) GERD (gastroesophageal reflux disease): Code(s): K21.9 - Gastro-esophageal reflux disease without esophagitis Plan: Onset of a couple of months of intermittent burning tight pain in the epigastrum. She has food getting stuck at the GE jxn. She has a lot of nausea but when I try to vomit a lump comes out. This in the epigastrum. Thie pain ins worse with eating and better when the stomach is empty - with all foods. This happens about every 2 weeks and will last all day. 10/10 at worst. No new medications, diet changes, or other illness proceeding the symptoms. She does not know if anyone in her family has similar problems, there is a general FHX of cancer she lost a brother to a cancer of unknown origin and her sister has breast cancer on the paternal side. Brother was 32 y /o. She will be visiting family soon and will seek more information. Her mother and 2 sisters both have had cholecystectomies. She tried avoiding fatty foods and her sx are worse with greasy foods. She has chronic CIC intermittently but lately she has been moving her bowels normally. She was on omeprazole 20mg which helped a little and then she ran out. She has not gained or lost weight of consequence. She struggles with depression/anxiety. Start omeprazole 40mg bid, but in case insurance does not cover bid will also give famotidine. Will get some basic labs, an H pylori breath test, and ultrasound and a barium swallow to further investigate the symptoms. ROV 6 weeks. (2) Epigastric pain: Code(s): R10.13 - Epigastric pain (3) Abdominal pain: Code(s): R10.9 - Unspecified abdominal pain (4) Dysphagia: Code(s): R13.10 - Dysphagia, unspecified Orders: Orders Comprehensive Met. Panel Today R10.13 - Epigastric pain, R10.9 - Unspecified abdominal pain Complete Blood Count Auto Diff Today R10.13 - Epigastric pain, R10.9 - Unspecified abdominal pain H Pylori Breath Test Today R10.13 - Epigastric pain, R10.9 - Unspecified abdominal pain US abdomen complete Today R10.13 - Epigastric pain, R10.9 - Unspecified abdominal pain FL barium swallow Today R13.10 - Dysphagia, unspecified Medications: New omeprazole 40 mg PO BID 30 days 60 caps 3RF famotidine (Pepcid) 40 mg PO BEDTIME 30 tabs 6RF K21.9 - Gastro-esophageal reflux disease without esophagitis, R13.10 - Dysphagia, unspecified LABS:: ULTRASOUND OF THE ABDOMEN Scheduled for 07/16 THE BARIUM SWALLOW TODAY'S VISIT . Her H pylori breath test was positive and I started her on a course of Flagyl in tetracycline quadruple therapy. She has 2 days left of the quad therapy, she still has gastric pain and early satiety. ? if this is a resistant HP strain vs a different pathology at play. Has US upcoming 07/16, will see her back after that and test for eradication. 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 ROV after 07.16 [facility] Medical History GERD (gastroesophageal reflux disease) Overweight (BMI 25.0-29.9) Depression Insomnia Exertional chest pain Exertional dyspnea Family history of brain aneurysm Recurrent headache Anxiety and depression Surgical History History of delivery Family History Mother No problems noted. Father No problems noted. 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 Gender identity: Female Cognitive needs: No Hearing needs: No Vision needs: No Female Reproductive History Menstrual Age of Menarche: 11 Review of Systems Const Denies fatigue, Denies fever(s), Denies night sweats, Reports poor appetite and Denies weight loss ENT Reports Normal hearing present, Denies dental pain, Denies dysphagia, Denies hearing loss, Denies mouth pain, Denies odynophagia, Denies throat swelling, Denies tongue swelling and Reports other (Dentition adequate) Card Reports no additional complaints Resp Reports no additional complaints GI Reports abdominal pain, Denies melena, Denies bloating, Denies hematochezia, Denies constipation, Denies GI cramping, Denies dysphagia, Denies excessive flatus, Reports early satiety, Reports heartburn, Denies diarrhea, Denies nausea, Denies odynophagia, Denies vomiting and Denies hematemesis Skin/Breast Denies pruritus, Denies lesions, Denies rash and Denies jaundice Neuro Reports Normal hearing present and Denies Abnormal speech present Endo Denies fatigue Aller/Immun Denies throat swelling and Denies tongue swelling Physical Exam Vital Signs: Last Vital Signs Pulse 71 07/02/23 11:08 BP 112/68 07/02/23 11:08 BMI result Body Mass Index 26.5 Const General: cooperative, no acute distress, well developed and well groomed Nutritional Appearance: average body habitus and well nourished Orientation/consciousness: oriented to person, oriented to place and oriented to time Limitations: No language barrier HEENT Head: Yes normocephalic and Yes atraumatic Eyes General: appearance normal, both eyes and all related structures Pupils: Equal, round and reactive pupils present Neck Neck: Yes normal visual inspection and Yes no lymphadenopathy Thyroid: Thyroid normal Resp Effort & Inspection: normal respiratory effort and able to speak in complete sentences Auscultation: clear to auscultation bilaterally Cardio Rate: regular rate Rhythm: regular rhythm Heart sounds: Normal, physiologic split S2 sound present Peripheral pulses: radial pulses present and posterior tibial pulses present GI Inspection: No distended and No Abdominal panniculus present Palpation (GI): Soft to palpation, nontender, no guarding, not rigid and No hepatosplenomegaly present Percussion: Yes normal to percussion Auscultation: normal bowel sounds Rectal Exam - Female: deferred Skin General skin exam: no rashes or lesions noted, turgor normal, skin not dry, no jaundice, No spider nevi and no striae Rashes: no rashes Nails: normal Neuro General: oriented to person, oriented to place and oriented to time Cranial nerves: Yes Equal, round and reactive pupils present and Yes Normal hearing present Speech: No Abnormal speech present Extrem General: Yes normal to inspection, No clubbing, No cyanosis and No edema Psych Appearance: grossly normal and well kempt Mental Status: mental status grossly normal Speech and movement: Normal speech and movement present Affect: normal affect Attitude: cooperative Thought process: Normal thought process present and not confabulating Thought content: Normal thought content present Insight: Limited insight present (Psych) Judgement: Limited judgement present (Psych) Assessment & Plan Assessment & Plan (1) H. pylori infection: Code(s): A04.8 - Other specified bacterial intestinal infections Plan: ULTRASOUND OF THE ABDOMEN Scheduled for 07/16 THE BARIUM SWALLOW TODAY'S VISIT . Her H pylori breath test was positive and I started her on a course of Flagyl in tetracycline quadruple therapy. She has 2 days left of the quad therapy, she still has gastric pain and early satiety. ? if this is a resistant HP strain vs a different pathology at play. Has US upcoming 07/16, will see her back after that and test for eradication. 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 ROV after 07.16 (2) Epigastric pain: Code(s): R10.13 - Epigastric pain (3) GERD (gastroesophageal reflux disease): Code(s): K21.9 - Gastro-esophageal reflux disease without esophagitis Coding Level of Care Code Est Pt Level 3 (87170) Diagnoses H. pylori infection A04.8 Epigastric pain R10.13 GERD (gastroesophageal reflux disease) K21.9
[2023-07-02 11:08] VITALS: BP 112/68; PULSE 71; BMI 26.5
== END 2023-07-02 12:48 | disposition home or self-care (01) ==
PROVIDERS: PCP Internal Medicine; Visit Provider Nurse Practitioner
DX: A04.8 Other specified bacterial intestinal infections (principal); R10.13 Epigastric pain; K21.9 Gastro-esophageal reflux disease without esophagitis
CPT/HCPCS: 99213

== ENCOUNTER → 2023-07-02 11:02 | Outpatient (BNVA) | payer OTHER, SELFPAY | PROVIDERS: PCP Internal Medicine; Visit Provider Nurse Practitioner | DX: A04.8 Other specified bacterial intestinal infections (principal); R10.13 Epigastric pain; K21.9 Gastro-esophageal reflux disease without esophagitis | CPT/HCPCS: 99212 ==

== ENCOUNTER 2023-07-17 10:49 | Outpatient (REF) | payer OTHER, SELFPAY ==
--- NOTE | ~2023-07-17 | US_ITS ---
EXAMINATION: US ABDOMEN COMPLETE CLINICAL INFORMATION: Epigastric abdominal pain. COMPARISON: Abdominal ultrasound 12/15/2017. TECHNIQUE: Real-time imaging of the abdominal viscera. FINDINGS: PANCREAS: Normal. ABDOMINAL AORTA: The proximal, mid, and distal segments are normal in caliber. INFERIOR VENA CAVA: Visualized portions are normal. LIVER: Normal. The liver is normal in size. The liver contour is normal. Parenchymal echogenicity is normal. No focal hepatic lesion. There is no intrahepatic biliary duct dilatation seen. GALLBLADDER: Normal. The gallbladder is physiologically distended without evidence of stones, sludge, polyps, wall thickening or pericholecystic fluid. COMMON BILE DUCT: Normal in caliber measuring 0.3 cm in diameter. RIGHT KIDNEY: 3 mm nonobstructing calculus in the lower pole. No hydronephrosis or focal parenchymal lesions. The kidney measures 10.8 cm in maximum dimension. LEFT KIDNEY: Normal. No hydronephrosis. No renal calculi or focal parenchymal lesions. The kidney measures 10.4 cm in maximum dimension. SPLEEN: Normal. The spleen measures 9.2 cm in maximum dimension. FREE FLUID: None. US/US abdomen complete IMPRESSION: 3 mm nonobstructing calculus in the lower right kidney. No hydronephrosis. Otherwise normal abdominal ultrasound.
== END 2023-07-17 10:50 | disposition home or self-care (01) ==
LOC: HO.HMGCX 10:49
PROVIDERS: PCP Internal Medicine; Visit Provider Nurse Practitioner
DX: R13.10 Dysphagia, unspecified (principal); R10.9 Unspecified abdominal pain
CPT/HCPCS: 76700

== ENCOUNTER 2023-08-25 13:05 | Outpatient (AMB) | payer OTHER, SELFPAY ==
--- NOTE | 2023-08-25 13:11 | MHC.PC.OV ---
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 Accompanied by: Child Allergies No Known Drug Allergies Allergy (Unknown, Verified 08/25/23 13:19) Unknown SEAFOOD Allergy (Unknown, Uncoded 08/25/23 13:19) RASH Medication List - Last Reconciled 08/25/23 by JANEE Carey bismuth subsalicylate (Bismuth) 2 tabs PO QID 14 days famotidine (Pepcid) 40 mg PO BEDTIME ibuprofen 600 mg PO Q8H PRN omeprazole 40 mg PO BID Tobacco use date assessed: 08/25/23 Dental Screening Dental Screen Date: 08/25/23 Did you have a dental visit in the last 12 months?: No Did you have a dental problem in the last 6 months where you did not have access to dental care?: No Was dental information given to patient?: Patient has dentist HPI Finger Infection HPI Details Patient is a 28-year-old female who presents today for the same day visit due to right hand 4th finger infection for the past [address] Bailey. Patient denies finger injury, reports pruritic rash, redness, tenderness to palpation. Has used [id number] creams with no improvement. She did not have this in the past. In addition, she reports right outer ankle tender bump for the past some time, did not use anything for pain. [facility] Medical History GERD (gastroesophageal reflux disease) Overweight (BMI 25.0-29.9) Depression Insomnia Exertional chest pain Exertional dyspnea Family history of brain aneurysm Recurrent headache Anxiety and depression Surgical History History of delivery Family History Mother No problems noted. Father No problems noted. 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 Raúl Barraza, Maryann Mane, Speedy Cota and colleagues, with an educational carlos from [employer]. Review of Systems Const Denies body aches, Denies chills, Denies fever(s) and Denies headache(s) ENT Denies dizziness, Denies otalgia, Denies headache(s) and Denies sore throat Card Denies chest pain, Denies lightheadedness and Denies dyspnea Resp Denies cough, Denies dyspnea and Denies wheezing GI Denies abdominal pain Denies dysuria Musc Denies myalgias Skin/Breast Reports as per HPI and Reports rash Neuro Denies dizziness and Denies headache(s) Aller/Immun Denies wheezing Physical exam (Primary Care) Vital Signs: Last Vital Signs BP 130/60 08/25/23 13:12 BMI result Body Mass Index 27.0 Tobacco/Smoking Status: Tobacco use Status Tobacco use date assessed 08/25/23 08/25/23 13:18 Patient Tobacco Use Status Never used Tobacco 08/25/23 13:18 e-Cigarette/Vaping Use Never Used 08/25/23 13:18 Thrive Assessment: Date of Thrive Assessment Date Thrive assessed 02/24/23 08/25/23 13:18 Const General: cooperative and no acute distress Orientation/consciousness: patient oriented x3 HENMT Head: Yes normocephalic and Yes atraumatic Throat: Yes posterior oropharynx normal Eyes General: appearance normal, both eyes and all related structures Neck Neck: Yes normal visual inspection and Yes full ROM Resp Effort & Inspection: normal respiratory effort and able to speak in complete sentences Auscultation: clear to auscultation bilaterally, no crackles, no rales, no rhonchi and no wheezes Cardio Rate: regular rate Rhythm: regular rhythm Heart sounds: S1 normal heart sound present and S2 normal heart sound present GI Auscultation: normal bowel sounds Skin Other: Right hand 4th finger lateral aspect 1.5cm slightly erythematous area, 2 fissures noted, no discharge, tender to palpation, patient also reports pruritus, mild warmth Right outer ankle no palpable lump noted, patient reports mild tenderness - encouraged to try [id number] ibuprofen 400 mg every 8 hours as needed Neuro General: patient oriented x3 Gait exam (Neuro): Normal gait present Extrem General: Yes full ROM Assessment and Plan Assessment & Plan (1) Rash of finger: Code(s): R21 - Rash and other nonspecific skin eruption Plan: Will cover with antibiotic for bacterial etiology due to warmth and redness Suspect also eczema-start triamcinolone daily for 14 days-do not use cream on face Keep appointment with PCP in couple weeks as scheduled or follow-up sooner as needed Patient agreed with the plan Medications: New cephalexin 500 mg PO Q12H 7 days 14 tabs 0RF R21 - Rash and other nonspecific skin eruption triamcinolone acetonide 0.1% 1 appl topical DAILY 14 days 15 grams 0RF R21 - Rash and other nonspecific skin eruption Coding Level of Care Code Est Pt Level 3 (37346) Diagnoses Rash of finger R21
[2023-08-25 13:12] VITALS: BP 130/60; BMI 27.0
== END 2023-08-25 13:28 | disposition home or self-care (01) ==
PROVIDERS: PCP Internal Medicine; Visit Provider Nurse Practitioner Family
DX: R21 Rash and other nonspecific skin eruption (principal)
CPT/HCPCS: 99213

== ENCOUNTER 2023-11-06 10:02 | Outpatient (AMB) | payer OTHER, SELFPAY ==
--- NOTE | 2023-11-06 11:04 | AM.OFFWIN_ITS ---
Intake Vital Signs 11/06/23 11:05 Height 5 ft 3 in Weight 148 lb 2 oz BMI 26.2 BP 110/62 Blood Pressure Location Lt brachial Position Sitting Pulse 65 Pulse Source Pulse Oximeter Temp 98.3 F Temp Source Oral Pulse Oximetry (%) 100 Oxygen Delivery Method Room Air Intake Visit Reasons: EST/right hand ring finger pain ([phone]) Intake Note: Pt is here today for Rt finger pain, pt states it started with an itchiness. Patient Tobacco Use Status: Never used Tobacco Allergies No Known Drug Allergies Allergy (Unknown, Verified 11/06/23 11:05) Unknown SEAFOOD Allergy (Unknown, Uncoded 08/25/23 13:19) RASH Do you need a note to return to daycare/school/sports/work: Yes HPI HPI Comments History of Present Illness Details This is a 28-year-old female who presented to the walk-in clinic complaining of right finger pain. She states she has a few cut/scrapes and a r dong on her right 4th finger. She states she was evaluated by her primary care physician who thought she might have eczema and she was given a steroid cream; however, she states that the rash worsened with steroid cream and she now has some erythema of her finger as well as pain extending from her finger down into her wrist. She denies any trauma or injury to the finger. She denies any fevers or chills. She is otherwise feeling well. [facility] Medical History GERD (gastroesophageal reflux disease) Overweight (BMI 25.0-29.9) Depression Insomnia Exertional chest pain Exertional dyspnea Family history of brain aneurysm Recurrent headache Anxiety and depression Surgical History History of delivery Family History Mother No problems noted. Father No problems noted. 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 Gender identity: Female Cognitive needs: No Hearing needs: No Vision needs: No Female Reproductive History Menstrual Age of Menarche: 11 Review of Systems Const All systems reviewed & are unremarkable except as noted in HPI and below Reports no additional complaints Eyes Reports no additional complaints ENT Reports no additional complaints Card Reports no additional complaints Resp Reports no additional complaints GI Reports no additional complaints Reports no additional complaints Musc Reports no additional complaints Skin/Breast Reports system reviewed and no additional complaints, except as documented Neuro Reports no additional complaints Psych Reports no additional complaints Endo Reports no additional complaints Wil/Lymph Reports no additional complaints Aller/Immun Reports no additional complaints Physical Exam Vital Signs: Last Vital Signs Temp 98.3 F 11/06/23 11:05 Pulse 65 11/06/23 11:05 BP 110/62 11/06/23 11:05 Pulse Ox 100 11/06/23 11:05 Oxygen Delivery Method Room Air 11/06/23 11:05 BMI result Body Mass Index 26.2 Const Other: Vital signs reviewed. Constitutional: Non-toxic appearing. No acute distress. Well-developed and well-nourished. HEENT: Normocephalic and atraumatic. Skin: Warm and dry. No rashes or lesions noted. Neck: Full and painless range of motion. No cervical lymphadenopathy. Cardio: Regular rate. No lower extremity edema. No JVD. Pulmonary: No respiratory distress. No accessory muscle usage. Gastrointestinal: Soft, nontender, and nondistended in all 4 quadrants. Musculoskeletal: There is mild swelling of her right 4th finger with to excoriation/abrasions of her right finger with surrounding erythema. There is also erythema of her right 4th finger. Neuro: Alert and oriented x4. Cranial nerves 2-12 grossly intact. No focal deficits appreciated. Psych: Normal mood and affect. Assessment & Plan Assessment & Plan (1) Cellulitis of finger of right hand: Code(s): L03.011 - Cellulitis of right finger Plan: This is a 28-year-old female who presented to the office complaining of right 4th finger pain, erythema, and swelling. History and physical appears to be consistent with cellulitis of the right 4th finger. Given pain extending into her right wrist, I have ordered an x-ray of the right hand to rule out a deep tissue infection although I consider this very unlikely. Patient was sent home on oral Keflex 500 mg 4 times daily x5 days as well as p.o. ibuprofen 800 mg 3 times daily x1 week for anti-inflammatory purposes. Patient was advised to follow-up here or proceed to the emergency room if she were to develop fever/chills, systemic symptoms, worsening erythema, or lymphangitic streaking. Patient verbalizes her understanding and she is in agreement with the plan. Orders: Orders XR hand RT 2V Today M79.644 - Pain in right finger(s) Medications: New cephalexin 500 mg PO QID 20 caps 0RF ibuprofen 800 mg PO Q8H 21 tabs 0RF Coding Level of Care Code Est Pt Level 3 (39223) Diagnoses Cellulitis of finger of right hand L03.011
[2023-11-06 11:05] VITALS: BP 110/62; PULSE 65; TEMP 36.8; O2SAT 100; BMI 26.2
== END 2023-11-06 12:09 | disposition home or self-care (01) ==
PROVIDERS: PCP Internal Medicine; Visit Provider Physician Assistant Medical
DX: L03.011 Cellulitis of right finger (principal)
CPT/HCPCS: 99213

== ENCOUNTER 2023-11-06 11:40 | Outpatient (REF) | payer OTHER, SELFPAY ==
--- NOTE | ~2023-11-06 | XR_ITS ---
EXAMINATION: XR HAND, RIGHT CLINICAL INFORMATION: Right finger pain. COMPARISON: Right hand radiographs dated 03/18/2022. TECHNIQUE: PA, lateral, and oblique views of the right hand. FINDINGS: No fracture or dislocation. Normal carpal alignment. No significant joint space narrowing or marginal osteophytes. No osseous erosion. No periarticular osteopenia. No abnormal soft tissue calcification. XR/XR hand RT 2V IMPRESSION: Unremarkable examination.
== END 2023-11-06 11:41 | disposition home or self-care (01) ==
LOC: HO.HMGCX 11:40
PROVIDERS: Visit Provider Physician Assistant Medical
DX: M79.644 Pain in right finger(s) (principal)
CPT/HCPCS: 73120

== ENCOUNTER 2024-07-07 12:52 | Outpatient (AMB) | payer OTHER, SELFPAY ==
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
[2024-07-07 13:11] VITALS: BP 110/58; PULSE 77; O2SAT 97; BMI 27.1
== END 2024-07-07 13:20 | disposition home or self-care (01) ==
PROVIDERS: PCP Internal Medicine; Visit Provider Nurse Practitioner Family
DX: M54.6 Pain in thoracic spine (principal)

== ENCOUNTER → 2024-07-07 12:52 | Outpatient (BNVA) | payer OTHER, SELFPAY | PROVIDERS: PCP Internal Medicine; Visit Provider Nurse Practitioner Family | DX: M54.6 Pain in thoracic spine (principal) | CPT/HCPCS: 99212 ==

== ENCOUNTER 2024-11-14 09:06 | Outpatient (AMB) | payer OTHER, SELFPAY ==
[2024-11-14 09:33] VITALS: BP 112/62; PULSE 76; TEMP 37.3; O2SAT 98; BMI 27.9
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
--- OUTSIDE RECORDS SUMMARY | 2024-11-14 13:24 | XMS_ITS | Clinical Summary ---
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 11/28/2015 Active meclizine (ANTIVERT) 25 mg tablet Take 1 Tab by mouth 3 times daily as needed for Other (dizziness). 09/05/2013 Active sertraline (ZOLOFT) 50 mg tablet Take 50 mg by mouth daily. Active traZODone (DESYREL) 100 mg tablet Take 100 mg by mouth at bedtime. Active Active Problems Problem Noted Date Diagnosed Date Anemia in , third trimester 02/06/2021 Previous delivery affecting 0 02/06/2021 Maternal obesity syndrome in third trimester Short interval between pregn ancies affecting , antepartum 02/06/2021 Unequal leg length 04/20/2014 Pelvic inflammatory disease 07/22/2013 Immunizations Name Administration Dates Next Due DTP 08/19/2000, 7,09/06/1996,07/29,1995 [id number] (Pentacel) 2mo to less than 5yo 09/27/1997,09/06/1996,07/29/1996,05/19 HPV, Quadrivalent 02/18/2011,02/07/2010,09/15/20 07 Hepatitis A Pediatric (Havri x; Vaqta) 12mo to less than 19yo 02/18/2011,02/07/2010 Hepatitis B (Xqprxll-S-Bqlvf , Recombivax HB-Adult) 19yo and older 09/27/1997,12/09/1996,1995 Hib (HbOC) 09/27/1997, 6,07/29/1996,05/19 MMR, measles mumps and rubel la Live (Priorix; M-M-R II) 12mo and older 08/19/2000,07/29/1996 Meningococcal MCV4P 02/07/2010 OPV 08/19/2000, 6,07/29/1996,05/19 Tdap Tetanus diptheria acell ular pertussis (Boostrix; Adacel) 7yo and older 09/15/2007 Varicella live (Varivax) 12m o and older 09/27/1997,07/29/1996 Surgical History Surgery Date Site/Laterality Comments SECTION N/A PROCEDURE: HISTORICAL DELIVERY; COMMENT: x3 Medical History Medical History Date Comments Unequal leg length 04/20/2014 DX:Unequal le g length Family History Medical History Relation Name Comments Breast cancer Maternal Grandmother age 60 s Diabetes Paternal Grandfather Diabetes Paternal Grandmother Relation Name Status Comments Father Alive Maternal Grandfather Maternal Grandmother Mother Alive Paternal Grandfather Paternal Grandmother Sister Alive heart problems Social History Tobacco Use Types Packs/Day Years Used Date Smoking Tobacco: Never Smokeless Tobacco: Never Alcohol Use Standard Drinks/Week Comments No 0 (1 standard drink = 0.6 oz pur e alcohol) Sex and Gender Information Value Date Recorded Sex Assigned at Not on file Gender Identity Not on file Sexual Orientation Not on file Obstetrics History Plan of Treatment Health Maintenance Due Date Last Done Comments Cervical Cancer Screening: Pap Smear 2016 DTaP,Tdap,and Td Vaccines (7 - Td or Tdap) 09/15/2017 09/15/2007, 08/19/2000, 09/27/1997, Additional history exists Depression Screening 04/28/2022 HIV Screening 04/28/2022 Hepatitis C Screening 04/28/2022 Social Influencers of Health Screening 04/28/2022 COVID-19 Vaccine ( season) 2024 Influenza Vaccine (#1) 2024 HIB Vaccines Completed 09/27/1997, 09/18, 09/06/1996, Additional history exists Hepatitis B Vaccines Completed 09/27/1997, 12/09/1996, 1995 Varicella Vaccines Completed 09/27/1997, 07/29/1996 IPV Vaccines Completed 08/19/2000, 09/18, 09/06/1996, Additional history exists MMR Vaccines Completed 08/19/2000, 07/29/1996 Meningococcal ACWY Vaccine Aged Out 02/07/2010 N o longer eligible based on patient's age to complete this topic HPV Vaccines Completed 02/18/2011, 01/18, 09/15/2007 Hepatitis A Vaccines Completed 02/18/2011, 02/08/20 10 Pneumococcal Vaccine: Pediatrics (0 to 5 Years) and At-Risk Patients (6 to 64 Years) Aged Out No longer eligible based on patient's age to complete this topic RSV Immunization Patients Under 20 months Aged Out No longer eligible based on patient's age to complete this topic Care Teams Leather Case Finisher Relationship Specialty Start Date End Date Casey Cabral MD PCP - General Internal Medicine 07/22/13
== END 2024-11-14 10:32 | disposition home or self-care (01) ==
PROVIDERS: PCP Internal Medicine; Visit Provider Nurse Practitioner Family
DX: R22.1 Localized swelling, mass and lump, neck (principal); R22.41 Localized swelling, mass and lump, right lower limb

== ENCOUNTER → 2024-11-14 09:06 | Outpatient (BNVA) | payer OTHER, SELFPAY | PROVIDERS: PCP Internal Medicine | DX: R22.1 Localized swelling, mass and lump, neck (principal); R22.41 Localized swelling, mass and lump, right lower limb | CPT/HCPCS: 99212 ==

== ENCOUNTER 2025-01-09 10:05 | Outpatient (AMB) | payer OTHER, SELFPAY ==
[2025-01-09 11:07] VITALS: BP 120/70; PULSE 102; O2SAT 98; BMI 26.4
--- NOTE | 2025-01-09 11:07 | AM.OFFWIN_ITS ---
Intake Vital Signs 3 01/09/25 11:07 Height 5 ft 3 in Weight 149 lb BMI 26.4 BP 120/70 Blood Pressure Location Rt brachial Position Sitting Pulse 102 H Pulse Source Pulse Oximeter Pulse Oximetry (%) 98 Oxygen Delivery Method Room Air Intake Visit Reasons: EP Lump on RT side of neck Intake Note: Patient here for lumps on right side of neck that have been present for a couple of months but has not improved and has been very dizzy and is having difficulty moving neck and eating. Patient Tobacco Use Status: Never used Tobacco Allergies No Known Drug Allergies Allergy (Unknown, Verified 01/09/25 11:09) Unknown SEAFOOD Allergy (Unknown, Uncoded 01/09/25 11:09) RASH Do you need a note to return to daycare/school/sports/work: No HPI HPI Comments 2 History of Present Illness0 Details 29 y/o female patient who presents to [facility] walk in clinic with c/o Swollen lymph nodes since October. She was seen 10/2024 for Submandibular Lymphdenopathy after Dental work - unfortunately this never resolved. Now reports Neck pain causing limited ROM due to swollen glands. Denies any URI symptoms or recent Respiratory Infection. Denies any recent dental work. [facility] Medical History (Updated 01/09/25 @ 11:38 by Marge Jackson NP) Lymphadenopathy Oral thrush Mass of right ankle GERD (gastroesophageal reflux disease) Overweight (BMI 25.0-29.9) Depression Insomnia Exertional chest pain Exertional dyspnea Family history of brain aneurysm Recurrent headache Anxiety and depression Surgical History History of delivery Family History Mother No problems noted. Father No problems noted. 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 Gender identity: Female Cognitive needs: No Hearing needs: No Vision needs: No Female Reproductive History Menstrual Age of Menarche: 11 Review of Systems Const All systems reviewed & are unremarkable except as noted in HPI and below Physical Exam Vital Signs: Last Vital Signs Pulse 102 H 01/09/25 11:07 BP 120/70 01/09/25 11:07 Pulse Ox 98 01/09/25 11:07 Oxygen Delivery Method Room Air 01/09/25 11:07 BMI result Body Mass Index 26.4 Const General: cooperative and no acute distress; No comfortable Orientation/consciousness: patient oriented x3 HEENT Head: Yes normocephalic Ears: external ears normal and TM's normal bilaterally General nose exam: Normal external nose present and No nasal discharge present Face and sinus: Yes sinuses nontender Mouth: moist mucous membranes Mouth/tongue images: 2 1. White Patches with bumps, thrush ?Geographic pattern Throat: Yes uvula midline Neck Neck: Yes trachea midline and Yes no JVD Thyroid: Thyroid normal Lymphatic: lymphadenopathy (Occipital, cervical, deep cervical, submandi and Submental nodes) Neck images: 2 1. TTP nodes B/L Neck 2. TTP Occipital Neck Neuro General: patient oriented x3 Assessment & Plan Assessment & Plan (1) Lymphadenopathy: Code(s): R59.1 - Generalized enlarged lymph nodes Plan: Tender and swollen Nodes; Occipital, cervical, Submandibular and Submental. Advised to f/u with PCP for Possible U/S Neck (2) Oral thrush: Code(s): B37.0 - Candidal stomatitis Plan: Ordered Nystatin Oral rinse. Medications: New 2 nystatin Swish in the mouth and retain for as long as possible (several minutes) before swallowing. 4 mL PO BID 56 mL 0RF 7 days B37.0 - Candidal stomatitis Coding Level of Care Code Est Pt Level 4 (66212) Diagnoses Lymphadenopathy R59.1 Oral thrush B37.0 Time Spent (min) 20
== END 2025-01-09 12:04 | disposition home or self-care (01) ==
PROVIDERS: PCP Internal Medicine; Visit Provider Nurse Practitioner Family
DX: R59.1 Generalized enlarged lymph nodes (principal); B37.0 Candidal stomatitis

== ENCOUNTER → 2025-01-09 10:05 | Outpatient (BNVA) | payer OTHER, SELFPAY | PROVIDERS: PCP Internal Medicine; Visit Provider Nurse Practitioner Family | DX: R59.1 Generalized enlarged lymph nodes (principal); B37.0 Candidal stomatitis | CPT/HCPCS: 99212 ==

== ENCOUNTER 2025-01-10 17:00 | Outpatient (AMB) | payer OTHER, SELFPAY ==
[2025-01-10 17:37] VITALS: BP 108/58; PULSE 96; TEMP 36.7; O2SAT 99; BMI 26.4
--- NOTE | 2025-01-10 17:37 | MHC.PC.OV ---
Vital Signs 01/10/25 17:37 Height 5 ft 3 in Weight 149 lb 3.2 oz BMI 26.4 BP 108/58 L Blood Pressure Location Lt brachial Position Sitting Pulse 96 Pulse Source Pulse Oximeter Temp 98.0 F Temp Source Temporal Artery Scan Pulse Oximetry (%) 99 Oxygen Delivery Method Room Air Intake Visit Reasons: Annual Message Clerk Required: No Accompanied by: Self / Same As Patient Allergies No Known Drug Allergies Allergy (Unknown, Verified 01/10/25 17:57) Unknown SEAFOOD Allergy (Unknown, Uncoded 01/10/25 17:57) RASH Medication List - Last Reconciled 01/10/25 by Cleve Bailey MD acetaminophen 1,000 mg (2 x 500 mg) PO Q6H PRN ibuprofen 800 mg PO Q8H Tobacco use date assessed: 01/10/25 Dental Screening Dental Screen Date: 01/10/25 Did you have a dental visit in the last 12 months?: Yes Did you have a dental problem in the last 6 months where you did not have access to dental care?: No Was dental information given to patient?: Patient has dentist HPI PE Annual HPI Details Patient comes in today for her annual physical examination - I have not seen patient since 02/24/2023 States that she's had about 2 to 3 painful bumps on the right side of her neck for the past couple of months now She went to the walk-in clinic in [place] for the same complaints back in late October 2024 and was advised that these may be lymph nodes that are a result of her recent dental work She was instructed to take some OTC ibuprofen for a few days and to see her PCP for further evaluation if the problem persists States that she went back to the walk in clinic a couple of days ago for persistence of the cysts on her right neck area and was advised that she should see her PCP for possible workup, including soft tissue ultrasound Patient states that she has been experiencing on and off headaches and dizziness regularly/daily lately Reports experiencing increased sinus congestion and mild sore throat but denies any fever Denies any chest pains, no increased shortness of breath Relates (+) occasional nausea but denies any vomiting; states that she has been experiencing recurrent epigastric pain for the past couple of weeks Notes that her abdominal pain would ease up slightly when she eats something and feels worse in the morning when she wakes up with an empty stomach States that her abdominal pain would also wake her up sometimes in the middle the night No change in bowel habits noted and states that she has not noticed any blood in her stool or any dark-colored stool lately She denies any acute urinary symptoms She was to go to the women's center here at [place] for her yearly gynecology exam and Pap smear but has not been seen here in a few years now [facility] Medical History (Updated 01/11/25 @ 01:55 by Cleve Bailey MD) Vitamin D deficiency Lymphadenopathy Oral thrush Mass of right ankle GERD (gastroesophageal reflux disease) Overweight (BMI 25.0-29.9) Depression Insomnia Exertional chest pain Exertional dyspnea Family history of brain aneurysm Recurrent headache Anxiety and depression Surgical History History of delivery Family History Mother No problems noted. Father No problems noted. 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 1. Little interest or pleasure in doing things: several days 2. Feeling down, depressed, or hopeless: not at all 3. Trouble falling or staying asleep, or sleeping too much: not at all 4. Feeling tired or having little energy: several days 5. Poor appetite or overeating: several days 6. Feeling bad about yourself - or that you are a failure or have let yourself or your family down: not at all 7. Trouble concentrating on things, such as reading the newspaper or watching television: not at all 8. Moving or speaking so slowly that other people could have noticed. Or the opposite - being so fidgety or restless that you have been moving around a lot more than usual: not at all 9. Thoughts that you would be better off or of hurting yourself in some way: not at all Total score: 3 Depression Screening Interpretation: Positive Depression Screening Follow-up: Follow-up Visit Requested Depression Screening Done: Yes 23653 - PHQ-9 Billing: Yes Source: Developed by Drs. Raúl Barraza, Maryann Mane, Speedy Cota and colleagues, with an educational carlos from [employer]. Thrive Questionnaire Date Thrive assessed: 01/10/25 I am a: Patient What is your living situation today?: I have a steady place to live Within the past 12 months, did the food you bought not last and you didn't have the money to get more?: Never true Within the past 12 months, did you worry whether your food would run out before you got money to buy more?: Never true Do you have trouble paying for medicines?: No Do you have trouble getting transportation to medical appointments?: No Do you have trouble paying your heating and electricity bill?: No Do you have trouble taking care of your child, family member or friend?: No Do you have trouble with day-to-day activities such as bathing, preparing meals, shopping, managing finances, etc.?: No Are you currently unemployed and looking for a job?: No Are you interested in more education?: No Please select the resources that you would like help with: None Currently or been in a relationship where the following occur: No concerns reported THRIVE Score: 0 AUDIT C Alcohol Use Questionnaire (AUDIT-C) 1. How often do you have a drink containing alcohol?: Never 2. How many drinks containing alcohol do you have on a typical day when you are drinking?: 1 or 2 3. How often do you have six or more drinks on one occasion?: Never Total Score: 0 Score Reviewed/Action Taken: Yes GT-7 AMB Questionnaire GT-7 Date GT - 7 assessed: 01/10/25 Feeling nervous, anxious, or on edge: 0 = Not at all Not being able to stop or control worryin = Not at all Worrying too much about different things: 0 = Not at all Trouble relaxin = More than half the days Being so restless that it is hard to sit still: 1 = Several days Becoming easily annoyed or irritable: 0 = Not at all Feeling afraid as if something awful might happen: 0 = Not at all Total GT-7 score (0-4 normal; 5-9 mild; 10-14 moderate; 15-21 severe): 3 Source: Developed by Drs. Raúl Barraza, Maryann Mane, Speedy Cota and colleagues, with an educational carlos from [employer]. GT-7 Assessment Billing GT-7 Assessment Tool: GT-7 Assessment 31745 Review of Systems Const Denies chills, Denies fatigue, Denies fever(s), Reports headache(s) (recurrent lately) and Denies malaise Eyes Denies blurry vision, Denies change in vision, Denies irritation and Denies itchy eyes ENT Denies dysphagia, Reports dizziness (on and off), Denies otalgia, Reports headache(s) (recurrent lately), Reports nasal congestion, Denies neck pain, Denies odynophagia, Denies sinus pain, Reports sinus pressure (mild) and Reports sore throat (mild, mostly on the right side) Card Denies chest pain, Denies rapid heart rate, Denies irregular heart rhythm, Denies palpitations and Denies dyspnea Resp Denies chest congestion, Denies cough, Denies dyspnea and Denies wheezing GI Reports abdominal pain (epigastric - see HPI), Denies bloating, Denies constipation, Denies dysphagia, Denies heartburn, Denies diarrhea, Reports nausea (at times), Denies odynophagia and Denies vomiting Denies hematuria, Denies urinary frequency, Denies dysuria, Denies urinary incontinence and Denies urinary urgency Musc Denies back pain, Denies arthralgias, Denies joint swelling, Denies muscle weakness and Denies neck pain Skin/Breast Details: (+) 2 to 3 small nodular lesions on the right side of the neck Denies breast pain, Denies breast mass, Denies change in pigmentation, Denies rash and Denies unusual bruising Neuro Reports dizziness (on and off), Reports headache(s) (recurrent lately) and Denies paresthesias Psych Denies anxiety and Denies depression Endo Denies fatigue and Denies palpitations Wil/Lymph Denies easy bruising Aller/Immun Denies itchy eyes and Denies wheezing Physical exam (Primary Care) Vital Signs: Last Vital Signs Temp 98.0 F 01/10/25 17:37 Pulse 96 01/10/25 17:37 BP 108/58 L 01/10/25 17:37 Pulse Ox 99 01/10/25 17:37 Oxygen Delivery Method Room Air 01/10/25 17:37 BMI result Body Mass Index 26.4 Tobacco/Smoking Status: Tobacco use Status Tobacco use date assessed 01/10/25 01/10/25 17:49 Patient Tobacco Use Status Never used Tobacco 01/10/25 17:39 Tobacco use type Cigarette 01/10/25 17:39 e-Cigarette/Vaping Use Never Used 01/10/25 17:39 PHQ-9: PHQ-9 Score PHQ-9: Total score 3 01/10/25 17:57 Depression Screening Interpretation: Positive Depression Screening Follow-up: Follow-up Visit Requested Thrive Assessment: Date of Thrive Assessment Date Thrive assessed 01/10/25 01/10/25 17:49 Currently or been in a relationship where the following occur: No concerns reported Const General: no acute distress, alert and awake Orientation/consciousness: patient oriented x3 HENMT Head: Yes normocephalic and Yes atraumatic Ears: external ears normal, TM's normal bilaterally and EAC's normal General nose exam: No nasal discharge present Face and sinus: Yes normal facial exam and Yes sinuses nontender Teeth and gingiva: dentition normal Throat: Yes abnormal tonsil ((+) mild RIGHT TP congestion) and Yes posterior oropharynx abnormal (increased erythema of the posterior pharynx) Eyes Eyelids: Yes eyelids normal Conjunctivae: conjunctivae normal Pupils: Equal, round and reactive pupils present EOM: EOMs intact bilaterally Neck Other: (+) 3 separate, smal, non-tender nodules on palpation over the right side of the neckl Neck: Yes supple Thyroid: Thyroid normal Resp Auscultation: clear to auscultation bilaterally, no rales and no wheezes Cardio Rate: regular rate Rhythm: regular rhythm Heart sounds: no murmurs GI Palpation (GI): Soft to palpation, Tenderness to palpation present (GI) in the epigastrum, no guarding, not rigid, No hepatosplenomegaly present and No Rebound tenderness present Auscultation: normal bowel sounds General: Yes no CVA tenderness Back/Spine/Pelvis Back: no CVA tenderness Thoracic/Lumbar Spine: No lumbar spinal tenderness Skin Lesions: no lesions Rashes: no rashes Neuro General: patient oriented x3, moves all extremities, no focal motor deficits and CN's II-XI intact bilaterally Cranial nerves: Yes Equal, round and reactive pupils present Cognition (Neuro): normal cognition Gait exam (Neuro): Normal gait present Extrem General: Yes no clubbing, cyanosis or edema Coding Level of Care Code Est Pt Prev Care 18-39y(05385) Diagnoses Annual physical exam Z00.00 Epigastric pain R10.13 Nodule of neck R22.1 Viral upper respiratory tract infection J06.9 URI type: unspecified viral URI Vitamin D deficiency E55.9 Overweight (BMI 25.0-29.9) E66.3 Cervical cancer screening Z12.4 Additional Codes GT-7 Assessment Billing - GT-7 Assessment Tool: GT-7 Assessment 58732 ([id number]) PHQ-9 - 82577 - PHQ-9 Billing: Yes ([id number]) Assessment & Plan Assessment & Plan (1) Annual physical exam: Code(s): Z00.00 - Encounter for general adult medical examination without abnormal findings Category: Medical Plan: Check labs She has not seen gynecology in a few years now and will be referred for this (2) Epigastric pain: Code(s): R10.13 - Epigastric pain Category: Medical Plan: Suspect gastritis Discussed dietary restrictions that may help keep her abdominal symptoms from flaring up often for now Will send her for upper GI series for further evaluation Will start her in the meantime on Famotidine 20 mg BID She tested positive on her H. pylori breath test back in 2022 and it appears that she was treated with bismuth, tetracycline and metronidazole by GI back then (3) Nodule of neck: Code(s): R22.1 - Localized swelling, mass and lump, neck Category: Medical Plan: Will send her for soft tissue US of the right side of the neck for further evaluation (4) Upper respiratory tract infection: Code(s): J06.9 - Acute upper respiratory infection, unspecified Category: Medical Qualifiers: URI type: unspecified viral URI Qualified Code(s): J06.9 - Acute upper respiratory infection, unspecified Plan: Discussed with patient that she mostly has a viral URI, which should clear up gradually on its own in a few days She can take some OTC cough/cold meds or decongestants PRN for symptomatic relief She is currently still taking oral Nystatin, which was prescribed by the walk-in clinic a couple of days ago for oral thrush Discussed with patient that the large-looking 'bumps' at the back of her tongue are enlarged circumvalate papillae, which are normally situated at the back of the tongue but are usually small and they can enlarge in the presence of an acute infection (5) Vitamin D deficiency: Code(s): E55.9 - Vitamin D deficiency, unspecified Category: Medical Plan: Will recheck her Vitamin D level for follow up Her Vitamin D level was low when last checked in 2021 and she is currently not taking any supplements for this (6) Overweight (BMI 25.0-29.9): Code(s): E66.3 - Overweight Category: Medical Plan: Reinforced diet/exercise as tolerated/lose weight (7) Cervical cancer screening: Code(s): Z12.4 - Encounter for screening for malignant neoplasm of cervix Category: Medical Plan: Will refer her to the [facility] to resume her yearly gynecology exam and pap smear Plan Follow up in 3 months Orders: Orders Comprehensive [place]. Panel Fast 01/10/25 E78.00 - Pure hypercholesterolemia, unspecified, Z00.00 - Encounter for general adult medical examination without abnormal findings Lipid Panel 01/10/25 E78.00 - Pure hypercholesterolemia, unspecified, Z00.00 - Encounter for general adult medical examination without abnormal findings UA CC w/rflx Micro + Cult 01/10/25 R30.0 - Dysuria, Z00.00 - Encounter for general adult medical examination without abnormal findings Vitamin D 25-OH Total 01/10/25 E55.9 - Vitamin D deficiency, unspecified, Z00.00 - Encounter for general adult medical examination without abnormal findings C Reactive Protein 01/10/25 R59.1 - Generalized enlarged lymph nodes Complete Blood Count Auto Diff 01/10/25 D64.9 - Anemia, unspecified, Z00.00 - Encounter for general adult medical examination without abnormal findings TSH reflex Free T4 01/10/25 E78.00 - Pure hypercholesterolemia, unspecified, Z00.00 - Encounter for general adult medical examination without abnormal findings Erythrocyte Sedimentation Rate 01/10/25 M79.7 - Fibromyalgia, R59.1 - Generalized enlarged lymph nodes US soft tiss head and/or neck 01/10/25 R22.1 - Localized swelling, mass and lump, neck FL upper GI series Today R10.13 - Epigastric pain Referrals [employer] SUPERVISOR Referral Z12.4 - Encounter for screening for malignant neoplasm of cervix Medications: New famotidine 20 mg PO BID 30 days PRN 60 tabs 0RF abdominal pain
--- OUTSIDE RECORDS SUMMARY | 2025-01-10 20:01 | XMS_ITS | Encounter Summary ---
Author Organization [place] [address] Care Team Providers Care Human Resource Analyst Name Role Phone Casey Cabral MD Primary Care Provider [phone] Reason for Visit * Reason Comments Dizziness Encounter Details Date Type Department Care Team ([facility] st Contact Info) Description 12/19/2024 9:55 AM EST - 12/19/2024 3:37 PM EST [facility] Emergency [address] [place] [address] Discharge Disposition: Left Against Medical Advice Social History Tobacco Use Types Packs/Day Years Used Date Smoking Tobacco: Never Smokeless Tobacco: Never Alcohol Use Standard Drinks/Week Comments No 0 (1 standard drink = 0.6 oz pur e alcohol) Comments Unknown Sex and Gender Information Value Date Recorded Sex Assigned at Not on file Legal Sex Female 2:41 PM EDT Gender Identity Not on file Sexual Orientation Not on file documented as of this encounter Last Filed Vital Signs Vital Sign Reading Time Taken Comments Blood Pressure 114/66 12/19/2024 10:14 AM EST Pulse 69 12/19/2024 10:14 AM EST Temperature 37.1 ??C (98.8 ??F) 12/19/2024 10:[address] Respiratory Rate 16 12/19/2024 10:14 AM EST Oxygen Saturation 96% 12/19/2024 10:14 AM EST Inhaled Oxygen Concentration - - Weight 66.2 kg (146 lb) 12/19/2024 10:14 AM EST Height 160 cm (5' 3 ) 12/19/2024 10:14 AM EST Body Mass Index 25.86 12/19/2024 10:14 AM EST documented in this encounter Medications at Time of Discharge diclofenac (VOLTAREN) 50 mg EC tablet Take 1 Tab by mouth 2 times daily. 11/28/2015 meclizine (ANTIVERT) 25 mg tablet Take 1 Tab by mouth 3 times daily as needed for Other (dizziness). 09/05/2013 sertraline (ZOLOFT) 50 mg tablet Take 50 mg by mouth daily. traZODone (DESYREL) 100 mg tablet Take 100 mg by mouth at bedtime. 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 Jose Montano RN 12/19/24 1342 * Acacia Schwarz RN - 12/19/2024 9:56 AM EST Pt presents from home, reported concern for dehydration- reported increased dryness to eye and dizziness. Denies vomiting. + Nausea and subjective chills. Alert and oriented x 3 documented in this encounter Plan of Treatment Not on file documented as of this encounter Procedures Procedure Name Priority Date/Time Associated Diagnosis Comments CBC WITH AUTO DIFFERENTIAL STAT 12/19/2024 11:38 AM EST CBC AND DIFFERENTIAL STAT 12/19/2024 11:38 AM EST COMPREHENSIVE METABOLIC PANEL STAT 12/19/2024 11:38 AM EST documented in this encounter Results * (ABNORMAL) CBC auto differential (12/19/2024 11:38 AM EST) WBC 2.9(L) 4.8 - 10.8 K/mcL LAB HEMETOLOGY METHOD 12/19/2024 12:25 PM EST [facility] RBC 4.30 3.80 - 4.80 M/mcL LAB HEMETOLOGY METHOD 12/19/2024 12:25 PM [facility] Hemoglobin 11.7 11.5 - 16.0 g/dL LAB HEMETOLOGY METHOD 12/19/2024 12:25 PM [facility] Hematocrit 36.4 35.0 - 47.0 % LAB HEMETOLOGY METHOD 12/19/2024 12:25 PM [facility] MCV 85.2 79.0 - 98.0 FL LAB HEMETOLOGY METHOD 12/19/2024 12:25 PM [facility] MCH 27.4 27.0 - 32.0 pcg LAB HEMETOLOGY METHOD 12/19/2024 12:25 PM [facility] MCHC 32.1 32.0 - 37.0 g/dL LAB HEMETOLOGY METHOD 12/19/2024 12:25 PM [facility] RDW 12.7 11.0 - 15.0 % LAB HEMETOLOGY METHOD 12/19/2024 12:25 PM [facility] Platelets 205 130 - 400 K/mcL LAB HEMETOLOGY METHOD 12/19/2024 12:25 PM [facility] MPV 11.3(H) 7.0 - 11.0 FL LAB HEMETOLOGY METHOD 12/19/2024 12:25 PM [facility] NRBC 0.0 <1.0 % LAB HEMETOLOGY METHOD 12/19/2024 12:25 PM [facility] NRBC Absolute 0.00 <0.10 K/mcL LAB HEMETOLOGY METHOD 12/19/2024 12:25 PM [facility] Neutrophils Relative 45.3 % LAB HEMETOLOGY METHOD 12/19/2024 12:25 PM [facility] Lymphocytes Relative 44.6 % LAB HEMETOLOGY METHOD 12/19/2024 12:25 PM [facility] Monocytes Relative 9.2 % LAB HEMETOLOGY METHOD 12/19/2024 12:25 PM [facility] Eosinophils Relative 0.3 % LAB HEMETOLOGY METHOD 12/19/2024 12:25 PM [facility] Basophils Relative 0.3 % LAB HEMETOLOGY METHOD 12/19/2024 12:25 PM [facility] Immature Granulocytes Relative 0.3 % LAB HEMETOLOGY METHOD 12/19/2024 12:25 PM [facility] Neutrophils Absolute 1.33(L) 1.50 - 7.00 K/mcL LAB HEMETOLOGY METHOD 12/19/2024 12:25 PM [facility] Lymphocytes Absolute 1.31 1.00 - 5.00 K/mcL LAB HEMETOLOGY METHOD 12/19/2024 12:25 PM [facility] Monocytes Absolute 0.27 0.20 - 1.00 K/mcL LAB HEMETOLOGY METHOD 12/19/2024 12:25 PM [facility] Eosinophils Absolute 0.01 0.00 - 0.50 K/mcL LAB HEMETOLOGY METHOD 12/19/2024 12:25 PM [facility] Basophils Absolute 0.01 0.00 - 0.20 K/mcL LAB HEMETOLOGY METHOD 12/19/2024 12:25 PM [facility] Immature Granulocytes Absolute 0.01 0.00 - 0.03 K/mcL LAB HEMETOLOGY METHOD 12/19/2024 12:25 PM [facility] Blood Venous blood specimen / Unknown Venipuncture / Unknown 12/19/2024 11:38 AM EST 12/19/2024 12:15 PM EST us Nick Lutz MD LAB BLOOD ORDERABLES Sun l Result [facility] [address] [place] [address], * Comprehensive metabolic panel (12/19/2024 11:38 AM EST) Sodium 139 133 - 145 mmol/L LAB CHEMISTRY METHOD 12/19/2024 12:[address] [facility] Potassium 4.3 3.5 - 5.5 mmol/L LAB CHEMISTRY METHOD 12/19/2024 12:40 PM [facility] Chloride 106 96 - 110 mmol/L LAB CHEMISTRY METHOD 12/19/2024 12:40 PM [facility] CO2 27 21 - 32 mmol/L LAB CHEMISTRY METHOD 12/19/2024 12:40 PM [facility] Anion Gap 6 3 - 11 LAB CHEMISTRY METHOD 12/19/2024 12:40 PM [facility] Glucose 89 70 - 100 mg/dL LAB CHEMISTRY METHOD 12/19/2024 12:40 PM [facility] BUN 7 5 - 25 mg/dL LAB CHEMISTRY METHOD 12/19/2024 12:40 PM [facility] Creatinine 0.58 0.50 - 1.10 mg/dL LAB CHEMISTRY METHOD 12/19/2024 12:40 PM [facility] eGFR 126 >=60 mL/min/1. 73m2 LAB CHEMISTRY METHOD 12/19/2024 12:40 PM [facility] Comment:Calculation based on the??Chronic Kidney Disease Epidemiology Collaboration (CKD-EPI) equation refit??without adjustment for race. BUN/Creatinine Ratio 12.1 LAB CHEMISTRY METHOD 12/19/2024 12:40 PM [facility] Calcium 8.8 8.5 - 10.5 mg/dL LAB CHEMISTRY METHOD 12/19/2024 12:40 PM [facility] AST (SGOT) 21 10 - 42 unit/L LAB CHEMISTRY METHOD 12/19/2024 12:40 PM [facility] ALT (SGPT) 22 10 - 60 unit/L LAB CHEMISTRY METHOD 12/19/2024 12:40 PM [facility] Alkaline Phosphatase 73 42 - 121 unit/L LAB CHEMISTRY METHOD 12/19/2024 12:40 PM [facility] Total Protein 8.0 6.0 - 8.0 g/dL LAB CHEMISTRY METHOD 12/19/2024 12:40 PM [facility] Albumin 3.5 3.2 - 5.0 g/dL LAB CHEMISTRY METHOD 12/19/2024 12:40 PM [facility] Total Bilirubin 0.4 0.0 - 1.4 mg/dL LAB CHEMISTRY METHOD 12/19/2024 12:40 PM [facility] Blood Venous blood specimen / Unknown Venipuncture / Unknown 12/19/2024 11:38 AM EST 12/19/2024 12:15 PM EST us Nick Lutz MD LAB BLOOD ORDERABLES Sun l Result [facility] [address] [place] [address], documented in this encounter Visit Diagnoses Not on filedocumented in this encounter Care Teams Human Resource Analyst Relationship Specialty Start Date End Date Casey Cabral MD [address] [place] [id number] PCP - General Internal Medicine 07/22/13 documented as of this encounter
--- OUTSIDE RECORDS SUMMARY | 2025-01-10 20:01 | XMS_ITS | Clinical Summary ---
Author Organization [facility] Address [address] [place] [address] Phone Care Team Providers Care Scaler Packer Name Role Phone Casey Cabral MD Primary Care Provider [phone] Allergies Active Allergy Reactions Criticality Noted Date Comments Shellfish Derived Swelling Medium 07/22/2013 Seafood Medications diclofenac (VOLTAREN) 50 mg EC tablet Take 1 Tab by mouth 2 times daily. 11/28/2015 Active meclizine (ANTIVERT) 25 mg tablet Take 1 Tab by mouth 3 times daily as needed for Other (dizziness) . 09/05/2013 Active sertraline (ZOLOFT) 50 mg tablet [...] leg length 04/20/2014 Pelvic inflammatory disease 07/22/2013 Encounters Date Type Department Care Team Description 12/19/2024 9:55 AM EST - 12/19/2024 3:37 PM EST Emergency [facility] Emergency [address] [place] [address] Discharge Disposition: Left Against Medical Advice from Last 3 Months Immunizations Name Administration Dates Next Due DTP 08/19/2000, 7,09/06/1996,07/29,1995 [id number] (Pentacel) 2mo to less than 5yo 09/27/1997,09/06/1996,07/29/1996,05/19 HPV, Quadrivalent 02/18/2011,02/07/2010,09/15/20 07 Hepatitis A Pediatric (Havri x; Vaqta) 12mo to less than 19yo 02/18/2011,02/07/2010 Hepatitis B (Evoqeyx-W-Zsnst , Recombivax HB-Adult) 19yo and older 09/27/1997,12/09/1996,1995 [...] Sexual Orientation Not on file Obstetrics History Last Filed Vital Signs Vital Sign Reading [...] Mass Index 25.86 12/19/2024 10:14 AM EST Plan of Treatment Health Maintenance Due Date Last Done Comments Cervical Cancer Screening: Pap Smear 2016 Depression Screening 04/28/2022 HIV Screening 04/28/2022 Hepatitis C Screening 04/28/2022 Social Influencers of Health Screening 04/28/2022 COVID-19 Vaccine ( season) 2024 09/03/2021, 06/21/2021 Influenza Vaccine (#1) 2024 , 12/30/2019, 09/17/2016, Additional history exists DTaP,Tdap,and Td Vaccines (9 - Td or Tdap) 11/26/2030 11/26/2020, 09/17/2016, 09/15/2007, Additional history exists HIB Vaccines Completed 09/27/1997, 09/18, 09/06/1996, Additional history exists Hepatitis B Vaccines Completed 09/27/1997, 12/09/1996, 1995, Additional history exists Varicella Vaccines Completed 09/27/1997, 1 , 07/29/1996 IPV Vaccines Completed 08/19/2000, 09/18, 09/27/1997, Additional history exists MMR Vaccines Completed 08/19/2000, 07/19, 1996 Meningococcal ACWY Vaccine Aged Out 02/07/2010 N o longer eligible based on patient's age to complete this topic HPV Vaccines Completed 02/18/2011, 01/18, 09/15/2007 Hepatitis A Vaccines Completed 02/18/2011, 02/08/20 10 Meningococcal B Vacine Aged Out No lo nger eligible based on patient's age to complete this topic Pneumococcal Vaccine: Pediatrics (0 to 5 Years) and At-Risk Patients (6 to 64 Years) Aged Out No longer eligible based on patient's age to complete this topic RSV Immunization Patients Under 20 months Aged Out No longer eligible based on patient's age to complete this topic Procedures Procedure Name Priority Date/Time Associated Diagnosis Comments CBC WITH AUTO DIFFERENTIAL STAT 12/19/2024 11:38 AM EST COMPREHENSIVE METABOLIC PANEL STAT 12/19/2024 11:38 AM EST CBC AND DIFFERENTIAL STAT 12/19/2024 11:38 AM EST from Last 3 Months Results * (ABNORMAL) CBC auto differential (12/19/2024 11:38 AM EST) WBC 2.9(L) 4.8 - 10.8 K/mcL LAB HEMETOLOGY METHOD 12/19/2024 12:25 PM [facility] RBC 4.30 3.80 - 4.80 M/mcL LAB HEMETOLOGY METHOD 12/19/2024 12:25 PM [facility] Hemoglobin 11.7 11.5 - 16.0 g/dL LAB HEMETOLOGY METHOD 12/19/2024 12:25 PM [facility] Hematocrit 36.4 35.0 - 47.0 % LAB HEMETOLOGY METHOD 12/19/2024 12:25 PM [facility] MCV 85.2 79.0 - 98.0 FL LAB HEMETOLOGY METHOD 12/19/2024 12:25 PM [facility] MCH 27.4 27.0 - 32.0 pcg LAB HEMETOLOGY METHOD 12/19/2024 12:25 PM [facility] MCHC 32.1 32.0 - 37.0 g/dL LAB HEMETOLOGY METHOD 12/19/2024 12:25 PM [facility] RDW 12.7 11.0 - 15.0 % LAB HEMETOLOGY METHOD 12/19/2024 12:25 PM [facility] Platelets 205 130 - 400 K/mcL LAB HEMETOLOGY METHOD 12/19/2024 12:25 PM [facility] MPV 11.3(H) 7.0 - 11.0 FL LAB HEMETOLOGY METHOD 12/19/2024 12:25 PM [facility] NRBC 0.0 <1.0 % LAB HEMETOLOGY METHOD 12/19/2024 12:25 PM [facility] NRBC Absolute 0.00 <0.10 K/mcL LAB HEMETOLOGY METHOD 12/19/2024 12:25 PM [facility] Neutrophils Relative 45.3 % LAB HEMETOLOGY METHOD 12/19/2024 12:25 PM [facility] Lymphocytes Relative 44.6 % LAB HEMETOLOGY METHOD 12/19/2024 12:25 PM [facility] Monocytes Relative 9.2 % LAB HEMETOLOGY METHOD 12/19/2024 12:25 PM [facility] Eosinophils Relative 0.3 % LAB HEMETOLOGY METHOD 12/19/2024 12:25 PM [facility] Basophils Relative 0.3 % LAB HEMETOLOGY METHOD 12/19/2024 12:25 PM [facility] Immature Granulocytes Relative 0.3 % LAB HEMETOLOGY METHOD 12/19/2024 12:25 PM [facility] Neutrophils Absolute 1.33(L) 1.50 - 7.00 K/mcL LAB HEMETOLOGY METHOD 12/19/2024 12:25 PM [facility] Lymphocytes Absolute 1.31 1.00 - 5.00 K/mcL LAB HEMETOLOGY METHOD 12/19/2024 12:25 PM [facility] Monocytes Absolute 0.27 0.20 - 1.00 K/mcL LAB HEMETOLOGY METHOD 12/19/2024 12:25 PM EST [facility] Eosinophils Absolute 0.01 0.00 - 0.50 K/mcL LAB HEMETOLOGY METHOD 12/19/2024 12:25 PM EST [facility] Basophils Absolute 0.01 0.00 - 0.20 K/[facility] LAB HEMETOLOGY METHOD 12/19/2024 12:25 PM [facility] Immature Granulocytes Absolute 0.01 0.00 - 0.03 K/[facility] LAB HEMETOLOGY METHOD 12/19/2024 12:25 PM [facility] Blood Venous blood specimen / Unknown Venipuncture / Unknown 12/19/2024 11:38 AM EST 12/19/2024 12:15 PM EST us Nick Lutz MD LAB BLOOD ORDERABLES Sun l Result [facility] [address] [place] [address], [place] [phone] * Comprehensive metabolic panel (12/19/2024 11:38 AM EST) Sodium 139 133 - 145 mmol/L LAB CHEMISTRY METHOD 12/19/2024 12:40 PM [facility] Potassium 4.3 3.5 - 5.5 mmol/L LAB CHEMISTRY METHOD 12/19/2024 12:40 PM [facility] Chloride 106 96 - 110 mmol/L LAB CHEMISTRY METHOD 12/19/2024 12:40 PM [facility] CO2 27 21 - 32 mmol/L LAB CHEMISTRY METHOD 12/19/2024 12:40 PM [facility] Anion Gap 6 3 - 11 LAB CHEMISTRY METHOD 12/19/2024 12:40 PM [facility] Glucose 89 70 - 100 mg/dL LAB CHEMISTRY METHOD 12/19/2024 12:40 PM [facility] BUN 7 5 - 25 mg/dL LAB CHEMISTRY METHOD 12/19/2024 12:40 PM [facility] Creatinine 0.58 0.50 - 1.10 mg/dL LAB CHEMISTRY METHOD 12/19/2024 12:40 PM [facility] eGFR 126 >=60 mL/min/1. 73m2 LAB CHEMISTRY METHOD 12/19/2024 12:40 PM [facility] Comment:Calculation based on the??Chronic Kidney Disease Epidemiology Collaboration (CKD-EPI) equation refit??without adjustment for race. BUN/Creatinine Ratio 12.1 LAB CHEMISTRY METHOD 12/19/2024 12:40 PM [facility] Calcium 8.8 8.5 - 10.5 mg/dL LAB CHEMISTRY METHOD 12/19/2024 12:40 PM [facility] AST (SGOT) 21 10 - 42 unit/L LAB CHEMISTRY METHOD 12/19/2024 12:40 PM [facility] ALT (SGPT) 22 10 - 60 unit/L LAB CHEMISTRY METHOD 12/19/2024 12:40 PM [facility] Alkaline Phosphatase 73 42 - 121 unit/L LAB CHEMISTRY METHOD 12/19/2024 12:40 PM [facility] Total Protein 8.0 6.0 - 8.0 g/dL LAB CHEMISTRY METHOD 12/19/2024 12:40 PM [facility] Albumin 3.5 3.2 - 5.0 g/dL LAB CHEMISTRY METHOD 12/19/2024 12:40 PM [facility] Total Bilirubin 0.4 0.0 - 1.4 mg/dL LAB CHEMISTRY METHOD 12/19/2024 12:40 PM [facility] Blood Venous blood specimen / Unknown Venipuncture / Unknown 12/19/2024 11:38 AM EST 12/19/2024 12:15 PM EST Nick Lutz MD LAB BLOOD ORDERABLES Sun choi Result [facility] [address] [place] [address], from Last 3 Months Insurance [facility] [employer] Care Teams Scaler Packer Relationship Specialty Start Date End Date Casey Cabral MD [address] [place] [id number] PCP - General Internal Medicine 07/22/13
== END 2025-01-10 18:08 | disposition home or self-care (01) ==
LOC: HO.HMCH 17:00
PROVIDERS: PCP Internal Medicine; Visit Provider Internal Medicine
DX: Z00.00 Encounter for general adult medical examination without abnormal findings (principal); R10.13 Epigastric pain; R22.1 Localized swelling, mass and lump, neck; J06.9 Acute upper respiratory infection, unspecified; E55.9 Vitamin D deficiency, unspecified; E66.3 Overweight; Z12.4 Encounter for screening for malignant neoplasm of cervix

== ENCOUNTER → 2025-01-10 17:00 | Outpatient (BNVA) | payer OTHER, SELFPAY | PROVIDERS: PCP Internal Medicine; Visit Provider Internal Medicine | DX: Z00.00 Encounter for general adult medical examination without abnormal findings (principal); R10.13 Epigastric pain; R22.1 Localized swelling, mass and lump, neck; J06.9 Acute upper respiratory infection, unspecified; E55.9 Vitamin D deficiency, unspecified; E66.3 Overweight; Z68.26 Body mass index [BMI] 26.0-26.9, adult | CPT/HCPCS: 96127; 99395 ==

== ENCOUNTER 2025-01-12 13:50 | Outpatient (REF) | payer OTHER, SELFPAY ==
[2025-01-12 14:02] LABS: MANUAL DIFF FLAG NO
[2025-01-12 14:17] LABS: Eosinophils Percent Auto 0.3 % (0-4); Hematocrit 30.2 % (37.0-47.0); Hemoglobin 10.1 g/dl (12.0-16.0); Imm Gran Abs Auto 0.01 X10*3/uL (0.00-0.03); Imm Gran Pct Auto 0.3 % (0.0-0.4); Lymphocytes Absolute Auto 1.2 X10*3/uL (1.2-4.9); Lymphocytes Percent Auto 42.7 % (20-40); Mean Corpuscular HGB Conc 33.4 g/dl (31.0-35.0); Mean Corpuscular Volume 80.7 fL (80.0-98.0); Mean Platelet Volume 10.4 fL (9.4-12.3); Monocytes Absolute Auto 0.3 X10*3/uL (0.1-1.2); Monocytes Percent Auto 9.4 % (2-11); Neutrophils Absolute Auto 1.4 x10*3/uL (2.0-8.3); Neutrophils Percent Auto 47.3 % (45-73); Platelet Count 203 X10*3/uL (160-400); Red Blood Count 3.74 X10*6/uL (4.20-5.50); Red Cell Distribution Width 13.5 % (11.0-16.0); White Blood Count 2.9 X10*3/uL (4.8-10.8)
[2025-01-12 14:55] LABS: Erythrocyte Sedimentation Rate 84 MM/HR (0-20)
[2025-01-12 14:58] LABS: Alanine Aminotransferase 30 U/L (0-31); Albumin Level 3.8 g/dL (3.5-5.0); Alkaline Phosphatase 91 U/L (39-117); Anion Gap 9 (12-20); Aspartate Amino Transferase 29 U/L (5-31); Bilirubin Total 0.5 mg/dL (0.0-1.0); Blood Urea Nitrogen 9 mg/dL (9-16); C Reactive Protein 5.02 mg/dL (< or = 0.50); Calcium 8.4 mg/dL (8.4-10.2); Carbon Dioxide 27 mmol/L (22-29); Chloride 105 mmol/L (96-108); Cholesterol 80 mg/dL (<200); Estimated Glomerular Filt Rate > 60; Glucose Fasting 77 mg/dL (60-99); HDL Cholesterol 20 mg/dL (>40); LDL Cholesterol Calculated 51 mg/dL (<100); Potassium 3.5 mmol/L (3.3-5.1); Sodium 137 mmol/L (135-145); Triglycerides 49 mg/dL (<150)
[2025-01-12 15:00] LABS: TSH reflex Free T4 0.87 uIU/mL (0.32-4.0); Vitamin D 25-OH Total 21.5 ng/mL (>30)
== END 2025-01-12 13:51 | disposition home or self-care (01) ==
LOC: HO.LAB 13:50
PROVIDERS: PCP Internal Medicine; Visit Provider Internal Medicine
DX: Z00.00 Encounter for general adult medical examination without abnormal findings (principal); R59.1 Generalized enlarged lymph nodes; E78.00 Pure hypercholesterolemia, unspecified; E55.9 Vitamin D deficiency, unspecified; D64.9 Anemia, unspecified; M79.7 Fibromyalgia
CPT/HCPCS: 36415; 80053; 80061; 82306; 84443; 85025; 85652; 86140

== ENCOUNTER 2025-04-06 10:06 | Outpatient (REF) | payer OTHER, SELFPAY ==
--- NOTE | ~2025-04-06 | FL_ITS ---
EXAMINATION: XR FLUOROSCOPY UPPER GI WITH AIR CLINICAL INFORMATION: Epigastric pain COMPARISON: None available. TECHNIQUE: Routine upper GI air contrast study was performed upright and lying position. FINDINGS: Following oral administration of thick barium and effervescent granules there is normal propagation of bolus from the oral cavity through the pharynx, esophagus into stomach. The course, caliber and peristalsis in the stomach, duodenal bulb and sweep is normal. The mucosal pattern of the stomach and duodenum is normal. There is mild gastroesophageal reflux without hiatal hernia. Incidental finding of moderate gastric secretions in the stomach are noted. FLUOROSCOPY TIME: 1 minute 23 seconds. DOSE AREA PRODUCT: 1053 uGy-m2 (microgray-meter squared) FL/FL upper GI w air IMPRESSION: Moderate increased gastric secretions likely secondary acidity. Mild gastroesophageal reflux but no hiatal hernia seen.. Electronically signed by: Ramos Morales MD 04/06/2025 03:01 PM EDT
--- OUTSIDE RECORDS SUMMARY | 2025-04-06 11:23 | XMS_ITS | Clinical Summary ---
Author Organization [facility] Address [address] [place] [address] Phone Care Team Providers Care Dietary Service Aide Name Role Phone Casey Cabral MD Primary Care Provider [phone] Allergies Active Allergy Reactions Criticality Noted Date [...] Administration Dates Next Due DTP 08/19/2000, 7,09/06/1996,07/29,1995 [id number] (Pentacel) 2mo to less than 5yo 09/27/1997,09/06/1996,07/29/1996,05/19 HPV, Quadrivalent 02/18/2011,02/07/2010,09/15/20 07 Hepatitis A Pediatric (Havri x; Vaqta) 12mo to less than 19yo 02/18/2011,02/07/2010 Hepatitis B (Pyktkbd-A-Ntjmm , Recombivax HB-Adult) 19yo and older 09/27/1997,12/09/1996,1995 [...] 69 12/19/2024 10:14 AM EST Temperature 37.1 C (98.8 F) 12/19/2024 10:14 AM EST Respiratory Rate 16 12/19/2024 10:14 AM EST [...] ( season) 2024 09/03/2021, 06/21/2021 Influenza Vaccine (Season Ended) 2025 10/29/2020, 12/30/2019, 09/17/2016, Additional history exists DTaP,Tdap,and Td [...] Vaccines Completed 02/18/2011, 02/08/20 10 Meningococcal B Vaccine Aged Out No l onger eligible based on patient's age to complete this topic Pneumococcal Vaccine: Pediatrics (0 to 5 Years) and At-Risk Patients (6 to 64 Years) Aged Out No longer eligible based on patient's age to complete this topic RSV Immunization Patients Under 20 months Aged Out No longer eligible based on patient's age to complete this topic Insurance [facility] [employer] Care Teams Dietary Service Aide Relationship Specialty Start Date End Date Casey Cabral MD [address] [place] [phone] PCP - General Internal Medicine 07/22/13
== END 2025-04-06 10:07 | disposition home or self-care (01) ==
LOC: HO.XRAY 10:06
PROVIDERS: PCP Internal Medicine; Visit Provider Internal Medicine
DX: R10.13 Epigastric pain (principal)
CPT/HCPCS: 74246

== ENCOUNTER → 2025-04-06 10:09 | Outpatient (BNV) | payer OTHER, SELFPAY | PROVIDERS: PCP Internal Medicine; Visit Provider Radiology Diagnostic Radiology | DX: R10.13 Epigastric pain (principal); E16.4 Increased secretion of gastrin | CPT/HCPCS: 74246 ==

== ENCOUNTER 2025-05-04 15:20 | Emergency (ER) | payer OTHER, SELFPAY ==
--- NOTE | ~2025-05-04 | CT_ITS ---
CLINICAL HISTORY: Swelling Pain CT soft tissue neck with contrast Comparison: None provided Findings: There is bilateral cervical and axillary adenopathy. Clinical follow-up recommended with either short-term follow-up ultrasound or CT. The visualized intracranial contents are unremarkable. Pharyngeal mucosal space, parapharyngeal fat, prevertebral tissues, and epiglottis are within normal limits. Salivary glands are within normal limits. No sialoliths. No suspicious thyroid nodules. No consolidation at the lung apices. No acute fractures. IMPRESSION: Bilateral cervical and axillary adenopathy, possibly benign reactive. Short-term follow-up clinical follow-up with possible follow-up CT or ultrasound recommended.. This document has been electronically signed by: Gilles Sneed MD on 05/04/2025 22:00:06
[2025-05-04 15:32] VITALS: BP 122/58; PULSE 98; RESP 16; TEMP 37.3; O2SAT 100; BMI 26.8
--- NOTE | 2025-05-04 15:33 | ED_ITS ---
HPI - General Adult General Chief complaint: Neck Pain/Injury Stated complaint: swollen lymph nodes Time Seen by Provider: 05/04/25 18:57 Source: patient Mode of arrival: ambulatory Limitations: no limitations History of Present Illness ED Provider: Aníbal CAMP HPI narrative: The patient is a 30-year-old female presenting to the ED reporting 3 weeks ago she was seen at urgent care for evaluation of bilateral swelling of her neck glands, patient was diagnosed with parotitis, treated with a 2 week course of amoxicillin, and advised to follow up with her dentist. Patient reports she follow up with her dentist who did not feel there was any need for dental intervention. The patient reports she has finished the antibiotics and has been taking ibuprofen for the past week without relief, and now is experiencing worsening swelling, greater on the left. The patient reports she is now experiencing difficulty swallowing prompting ED evaluation. The patient denies associated stridor, shortness of breath, cough, fever/chills, nausea, vomiting, or other acute somatic complaint. The patient reports she has not had any imaging of the swelling. Patient has not been utilizing sour drops, reporting she was not instructed to do so. Related Data Previous Rx's ?Medication ?Instructions ?Recorded acetaminophen 500 mg capsule 1,000 mg (2 x 500 mg) PO Q6H PRN 07/07/24 pain #60 caps ibuprofen 800 mg tablet 800 mg PO Q8H #60 tabs 07/07 famotidine 20 mg tablet 20 mg PO BID PRN abdominal p ain 30 01/10/25 days #60 tabs Allergies Allergy/AdvReac Type Severity Reaction Status Date / Time seafood Allergy Anaphylaxis Verified 05/04/25 15:36 Review of Systems 2 Review of Systems: Yes all other systems are reviewed and are negative [facility] Past Medical History Medical History (Updated 05/04/25 @ 22:44 by Aníbal Watters PA-C) Vitamin D deficiency Lymphadenopathy Oral thrush Mass of right ankle GERD (gastroesophageal reflux disease) Overweight (BMI 25.0-29.9) Depression Insomnia Exertional chest pain Exertional dyspnea Family history of brain aneurysm Recurrent headache Anxiety and depression Surgical History History of delivery Family History Family History Mother No problems noted. Father No problems noted. 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 Gender identity: Female Cognitive needs: No Hearing needs: No Vision needs: No Physical Exam ED Vital Signs: Vital Signs - 24 hr 05/04/25 15:32 05/04/25 18:19 05/04/25 20:24 Temperature 99.2 F 97.8 F 98.2 F Pulse Rate 98 76 81 Respiratory Rate 16 18 18 Blood Pressure 122/58 L 108/57 L 121/74 Pulse Oximetry 100 99 98 Oxygen Delivery Method Room Air Room Air Room Air 05/04/25 22:27 Temperature 98.1 F Pulse Rate 76 Respiratory Rate 18 Blood Pressure 105/57 L Pulse Oximetry 98 Oxygen Delivery Method Room Air BMI result Body Mass Index 26.8 CONSTITUTIONAL: The patient appears non-toxic, well nourished and in no acute distress. Vital signs as documented. HEAD: Atraumatic, normocephalic. EYES: EOMs grossly intact, pupils equal, conjunctiva clear, no exudate. ENT: Nares patent, no discharge. Airway patent, no audible stridor, visible mucosa is pink and moist without noted lesions. Posterior pharynx reveals midline nonedematous uvula, no tonsillar or peritonsillar swelling, no tonsillar exudate, no pooling secretions visible. NECK: Trachea is midline, no central spinous tenderness, crepitus, or step-off. There is marked swelling noted of the submandibular area on the left, mild swelling of the right submandibular area, left submandibular swelling is markedly tender to palpation, no overlying erythema. No palpable fluctuance. CHEST: Symmetric movement, normal appearance. LUNGS: LS present and CTAB, no w/r/r. Non-labored work of breathing. CARDIAC: Regular Rhythm, S1/S2 appreciated, no murmurs, rubs or gallops. ABDOMEN: Abdomen soft and non-tender x4 quadrants, no palpable masses or organomegaly. : Deferred. EXTREMITIES: Normal tone, moves all extremities spontaneously without reported pain. No obvious acute injury or deformity noted. NEURO: Alert and oriented x3, CN II-XII appear grossly intact. Cerebellar Functioning grossly intact. No obvious sensory or motor deficits. Speech clear and appropriate. PSYCH: normal affect, appropriate eye contact, fluid speech, with appropriate response to questioning. No reported suicidality or homicidality. SKIN: Warm, dry, color appropriate, normal turgor. No rashes noted. There is no palpable axillary or inguinal lymphadenopathy appreciated bilaterally. Course Course Course Narrative: This is a rapid medical exam performed by Yair Lujan NP: Additional HPI, ROS, PE not included below will be deferred to primary provider. Patient is a 30-year-old female presenting with complaint of swollen lymph nodes for the past 3 weeks. Went to urgent care and was referred to a dentist who told patient they could not manage her symptoms either. Plan: labs Medications Administered Discontinued Medications Generic Name Dose Route Start Last Admin Trade Name Freq PRN Reason Stop Dose Admin Sodium Chloride 1,000 mls @ 999 mls/hr 05/04/25 20:30 05/04/25 21:59 Ns IV 05/04/25 21:30 999 mls/hr .Q1H1M PHILOMENA Administration Iohexol 75 ml 05/04/25 21:27 05/04/25 21:27 Iohexol 350 Mg/Ml 100 Ml Infus..Btl IV 05/04/25 21:28 75 ml ONCE ONE Administration Ketorolac Tromethamine 15 mg 05/04/25 20:19 05/04/25 21:01 Ketorolac Tromethamine 15 Mg/Ml Vial IVPUSH 05/04/25 20:20 15 mg ONCE ONE Administration Medical Decision Making Medical Decision Making MDM Narrative: 8:40 PM 05/04/2025 (Nikko CAMP): The patient is a 30-year-old female presenting to the ED for evaluation of persistent swelling, pain, and tenderness of the bilateral submandibular area greater on the left despite treatment with amoxicillin times 14 days. The patient denies associated fever/chills, nausea, vomiting or other systemic complaint. Exam reveals marked swelling of the left submandibular area with tenderness to palpation. There is no stridor, adventitious lung sounds, or evidence of impending airway obstruction. There is no axillary or inguinal lymphadenopathy. The patient's laboratory evaluation shows no leukocytosis, significant anemia, electrolyte abnormality, or SINDY. The patient is viral swab is negative, Monospot negative, strep swab is pending. The patient's swelling is most likely secondary to sialolith with parotitis, however we will obtain CT of the neck to rule out necrotic lymph nodes or other acute pathology. Pending CT results the patient will most likely be discharged with Augmentin and instructions to utilize Lili candies to expel sialolith. 10:35 PM 05/04/2025 (Nikko CAMP): The patient's CT unfortunately shows bilateral cervical and axillary lymphadenopathy without any evidence of parotid inflammation, sialolith, or infectious source. The patient's laboratory evaluation, specifically CBC is unremarkable, no leukocytosis or lymphocytosis, however due to the presence of both cervical and axillary lymphadenopathy without fever, obvious infection, or other explanation, the patient will be referred to Oncology for further evaluation. There is no indication for recurrent antibiotics. Admission/Observation Consideration of admission/observation: Escalation of care including admission/observation considered Lab Data MDM Lab Attestation statement: I reviewed the patient's lab results. 05/04/25 15:50 05/04/25 15:50 Labs: Lab Results 05/04/25 05/04/25 Range/Units 15:50 20:37 WBC 4.2 L (4.8-10.8) X10*3/uL RBC 3.98 L (4.20-5.50) X10*6/uL Hgb 11.2 L (12.0-16.0) g/dl Hct 33.1 L (37.0-47.0) % MCV 83.2 (80.0-98.0) fL MCH 28.1 (27.0-33.0) pg MCHC 33.8 (31.0-35.0) g/dl RDW 13.0 (11.0-16.0) % Plt Count 252 (160-400) X10*3/uL MPV 9.8 (9.4-12.3) fL Immature Gran % (Auto) 0.2 (0.0-0.4) % Neut % (Auto) 58.1 (45-73) % Lymph % (Auto) 31.8 (20-40) % [place] % (Auto) 9.0 (2-11) % Eos % (Auto) 0.7 (0-4) % Baso % (Auto) 0.2 (0-2) % Lymph # (Auto) 1.3 (1.2-4.9) X10*3/uL [place] # (Auto) 0.4 (0.1-1.2) X10*3/uL Eos # (Auto) 0.0 (0.0-0.4) X10*3/uL Baso # (Auto) 0.0 (0.0-0.2) X10*3/uL Abs Immat Gran (auto) 0.01 (0.00-0.03) X10*3/uL Absolute Neuts (auto) 2.5 (2.0-8.3) x10*3/uL Absolute Nucleated RBC 0.000 (0.0-0.012) X10*3/uL Nucleated RBC % (auto) 0.0 (0.0-0.2) /100WBC Sodium 140 (135-145) mmol/L Potassium 4.3 D (3.3-5.1) mmol/L Chloride 107 (96-108) mmol/L Carbon Dioxide 27 (22-29) mmol/L Anion Gap 10 L (12-20) BUN 8 L (9-16) mg/dL Creatinine 0.64 (0.5-1.4) mg/dL Estim Creat Clear Calc 119.4 Estimated GFR > 60 Random Glucose 89 (60-115) mg/dL Calcium 8.9 (8.4-10.2) mg/dL Total Bilirubin 0.5 (0.0-1.0) mg/dL AST 20 (5-31) U/L ALT 14 (0-31) U/L Alkaline Phosphatase 65 (39-117) U/L Total Protein 7.7 (6.5-8.0) g/dL Albumin 4.1 (3.5-5.0) g/dL Urine Test NEGATIVE (NEGATIVE) Monoscreen Negative (Negative) Influenza Type A (PCR) NEGATIVE (Negative) Influenza Type B (PCR) NEGATIVE (Negative) RSV RNA Qual (PCR) NEGATIVE (Negative) SARS-CoV-2 RNA (RT-PCR) NEGATIVE (Negative) Radiology Impression Discussion of test interpretation with radiology: I have reviewed the radiologist's reading. Radiologist Impression: CLINICAL HISTORY: Swelling Pain CT soft tissue neck with contrast Comparison: None provided Findings: There is bilateral cervical and axillary adenopathy. Clinical follow-up recommended with either short-term follow-up ultrasound or CT. The visualized intracranial contents are unremarkable. Pharyngeal mucosal space, parapharyngeal fat, prevertebral tissues, and epiglottis are within normal limits. Salivary glands are within normal limits. No sialoliths. No suspicious thyroid nodules. No consolidation at the lung apices. No acute fractures. IMPRESSION: Bilateral cervical and axillary adenopathy, possibly benign reactive. Short-term follow-up clinical follow-up with possible follow-up CT or ultrasound recommended.. This document has been electronically signed by: Gilles Sneed MD on 05/04/2025 22:00:06 Prescription Management I considered prescription management with: Pain Medication and Antibiotic Discharge Plan Discharge Clinical Impression: Lymphadenopathy Patient Disposition: Home, Self-Care Instructions: Lymphadenopathy (ED) Additional Instructions: Thank you for choosing [facility]'s Emergency Department for your care today. Your laboratory evaluation and CT today showed no evidence of infection of your parotid glands, and no evidence of any abscess or other infectious process, as such there was no indication for additional antibiotics. Your CT shows no swelling or pending obstruction of your airway, as such at this time there is no indication for admission to the hospital or continued ED observation, and it is safe to discharge you home. Your CT unfortunately does show evidence of swelling of your lymph nodes on both sides of your neck and both of your arm pits. Seeing as your workup shows no evidence of a infectious cause for this, it is extremely important that you follow up with our oncology team for evaluation and possible biopsy of the lymph nodes as indicated. You may take alternating (staggered) doses of ibuprofen 600mg and Tylenol 1000mg every 4 hours as needed for any additional pain. Please stay well hydrated and get plenty of rest. Please also follow up with your primary care physician for re-evaluation, additional management of your symptoms, and continued preventative care. If you do not have a primary care physician, please call the [facility] at [phone] to establish a new primary care physician. While waiting to establish your new primary care physician, you can call our [facility] at [phone] for non-emergency needs. Please return to the emergency department if you develop a severe or sudden change in your symptoms, a fever over 100.4 that does not improve with Tylenol or Ibuprofen, recurrent vomiting, or any other new or worsening symptoms or concerns. Prescriptions: No Action ibuprofen 800 mg tablet 800 mg PO Q8H Qty: 60 0RF acetaminophen 500 mg capsule 1,000 mg PO Q6H PRN (Reason: pain) Qty: 60 0RF famotidine 20 mg tablet 20 mg PO BID PRN (Reason: abdominal pain) 30 Days Qty: 60 0RF Referrals: Physician,Unknown J [Primary Care Provider, Medical] Clinical Impression: Lymphadenopathy Lilliam Whitley MD [Physician, Hematology & Oncology] Clinical Impression: Lymphadenopathy Stand Alone Forms: Work/School Release Print Language: Cambodian
[2025-05-04 15:55] LABS: MANUAL DIFF FLAG NO
[2025-05-04 16:00] LABS: Hematocrit 33.1 % (37.0-47.0); Hemoglobin 11.2 g/dl (12.0-16.0); Imm Gran Abs Auto 0.01 X10*3/uL (0.00-0.03); Imm Gran Pct Auto 0.2 % (0.0-0.4); Lymphocytes Absolute Auto 1.3 X10*3/uL (1.2-4.9); Mean Corpuscular HGB Conc 33.8 g/dl (31.0-35.0); Mean Corpuscular Hemoglobin 28.1 pg (27.0-33.0); Mean Corpuscular Volume 83.2 fL (80.0-98.0); NRBC Abs Auto 0.000 X10*3/uL (0.0-0.012); NRBC Pct Auto 0.0 /100WBC (0.0-0.2); Platelet Count 252 X10*3/uL (160-400); Red Blood Count 3.98 X10*6/uL (4.20-5.50); White Blood Count 4.2 X10*3/uL (4.8-10.8)
[2025-05-04 16:07] LABS: IDNOW Serial# 55D5AD1C; Strep A Nucleic Acid Negative (Negative)
[2025-05-04 16:12] LABS: Alanine Aminotransferase 14 U/L (0-31); Albumin Level 4.1 g/dL (3.5-5.0); Alkaline Phosphatase 65 U/L (39-117); Anion Gap 10 (12-20); Aspartate Amino Transferase 20 U/L (5-31); Blood Urea Nitrogen 8 mg/dL (9-16); Calcium 8.9 mg/dL (8.4-10.2); Carbon Dioxide 27 mmol/L (22-29); Chloride 107 mmol/L (96-108); Creatinine Clr Calc Pharmacy 119.4; Estimated Glomerular Filt Rate > 60; Potassium 4.3 mmol/L (3.3-5.1); Sodium 140 mmol/L (135-145); Total Protein 7.7 g/dL (6.5-8.0)
[2025-05-04 16:36] LABS: Resp Syncy Virus RNA Qual PCR NEGATIVE (Negative); SARS COV2 PCR INHOUSE NEGATIVE (Negative)
[2025-05-04 18:19] VITALS: BP 108/57; PULSE 76; RESP 18; TEMP 36.6; O2SAT 99
[2025-05-04 20:24] VITALS: BP 121/74; PULSE 81; RESP 18; TEMP 36.8; O2SAT 98
[2025-05-04 20:45] LABS: UPreg QC Valid YES
[2025-05-04] MEDS: iohexoL 350 MG/ML 100 ML INFUS..BTL 75 ML IV (21:27)
[2025-05-04 22:27] VITALS: BP 105/57; PULSE 76; RESP 18; TEMP 36.7; O2SAT 98
[2025-05-04 23:09] VITALS: BP 105/57; PULSE 76; RESP 18; TEMP 36.7; O2SAT 98
== END 2025-05-04 23:10 | disposition home or self-care (01) ==
PROVIDERS: Physician Assistant; Registered Nurse Emergency; Emergency Provider Internal Medicine
DX: K11.20 Sialoadenitis, unspecified (principal); R59.0 Localized enlarged lymph nodes; M54.2 Cervicalgia; R11.0 Nausea; Z79.899 Other long term (current) drug therapy; Z03.818 Encounter for observation for suspected exposure to other biological agents ruled out
CPT/HCPCS: 36415; 70491; 80053; 81025; 85025; 86308; 87637; 87651; 96361; 96374; 99284; J1885; Q9967

== ENCOUNTER → 2025-05-04 20:19 | Outpatient (BNV) | payer OTHER, SELFPAY | PROVIDERS: Emergency Provider Internal Medicine; Visit Provider Specialist | DX: R59.0 Localized enlarged lymph nodes (principal) | CPT/HCPCS: 70491 ==

== ENCOUNTER → 2025-05-11 13:05 | Outpatient (BNV) | payer OTHER, SELFPAY | PROVIDERS: PCP Internal Medicine; Visit Provider Internal Medicine | DX: R59.0 Localized enlarged lymph nodes (principal) | CPT/HCPCS: 99204 ==

== ENCOUNTER 2025-06-12 10:29 | Outpatient (REF) | payer OTHER, SELFPAY ==
--- NOTE | ~2025-06-12 | US_ITS ---
EXAMINATION: Ultrasound guided left neck lymph node FNA biopsy. CLINICAL INDICATION: Bilateral neck and axillary lymphadenopathy. COMPARISON: CT neck soft tissue with IV contrast 05/04/2025. TECHNIQUE: Initially axillary ultrasound was performed and no abnormal lymph node was seen. Ultrasound of the neck was performed in the left submandibular gland lymph node was identified correlating well with the CT finding. Ultrasound-guided fine-needle aspiration/biopsy procedure, benefits and risk were obtained. Patient was placed supine and preliminary ultrasound imaging was obtained through the right and left neck. Large left submandibular lymph node was identified and marked on the skin. The marked area was cleaned and draped in usual sterile manner with 2% chlorhexidine solution. 1% lidocaine was inserted puncture site. Through a small skin incision a 21-gauge needle attached to a syringe was inserted through the skin into the left submandibular lymph node under sterile ultrasound guidance. A 3 pass fine-needle aspiration/biopsy was performed. Complete hemostasis achieved post procedure. Simple Band-Aid applied at the patient site. Patient tolerated procedure extremely well. No conscious sedation was given. FINDINGS/ US/US biopsy lymph node IMPRESSION: On preliminary ultrasound imaging of the axilla no abnormal lymph nodes are seen. There is abnormal left neck submandibular gland space lymph node visualized. A 3 pass fine-needle aspiration biopsy of this left submandibular gland space lymph node was performed. Electronically signed by: Ramos Morales MD 06/12/2025 02:16 PM EDT
[2025-06-12] MEDS: Lidocaine HCl 1 % MPF 5 ML VIAL SUBCUT (11:31)
--- OUTSIDE RECORDS SUMMARY | 2025-06-12 11:38 | XMS_ITS | Clinical Summary ---
Author Organization [facility] Address [address] [place] [address] Phone Care Team Providers Care Winding Operator Name Role Phone Casey Cabral MD Primary Care Provider [phone] Allergies Active Allergy Reactions Criticality Noted Date [...] Encounters Date Type Department Care Team Description 04/13/2025 5:18 AM EDT - 04/13/2025 7:37 AM EDT Emergency [facility] Emergency [address] [place] [address] Discharge Disposition: Left Against Medical Advice from Last 3 Months Immunizations Name Administration Dates Next Due DTP 08/19/2000, 7,09/06/1996,07/29,1995 [id number] (Pentacel) 2mo to less than 5yo 09/27/1997,09/06/1996,07/29/1996,05/19 HPV, Quadrivalent 02/18/2011,02/07/2010,09/15/20 07 Hepatitis A Pediatric (Havri x; Vaqta) 12mo to less than 19yo 02/18/2011,02/07/2010 Hepatitis B (Tsjkdvn-Y-Bjwbd , Recombivax HB-Adult) 19yo and older 09/27/1997,12/09/1996,1995 [...] Sign Reading Time Taken Comments Blood Pressure 109/71 04/13/2025 5:22 AM EDT Pulse 73 04/13/2025 5:22 AM EDT Temperature 36.6 C (97.9 F) 04/13/2025 5:22 AM EDT Respiratory Rate 16 04/13/2025 5:22 AM EDT Oxygen Saturation 99% 04/13/2025 5:22 AM EDT Inhaled Oxygen Concentration - - Weight 68.9 kg (152 lb) 04/13/2025 5:22 AM EDT Height 160 cm (5' 3 ) 04/13/2025 5:22 AM EDT Body Mass Index 26.93 04/13/2025 5:22 AM EDT Plan of Treatment Health Maintenance Due Date Last Done Comments Cervical Cancer Screening: Pap Smear 2016 HIV Screening 04/28/2022 Hepatitis C Screening 04/28/2022 Social Influencers of Health Screening 04/28/2022 COVID-19 Vaccine ( season) 2024 09/03/2021, 06/21/2021 Depression Screening 10/19/2024 Influenza Vaccine (#1) 2025 , 12/30/2019, 09/17/2016, Additional history exists DTaP,Tdap,and [...] 5 Years) and At-Risk Patients (6 to 49 Years) Aged Out No longer eligible based on patient's age to complete this topic RSV Immunization Patients Under 20 months Aged Out No longer eligible based on patient's age to complete this topic Procedures Procedure Name Priority Date/Time Associated Diagnosis Comments CBC WITH AUTO DIFFERENTIAL STAT 04/13/2025 5:45 AM EDT BASIC METABOLIC PANEL STAT 04/13/2025 5:45 AM EDT CBC AND DIFFERENTIAL STAT 04/13/2025 5:45 AM EDT POC , URINE DIAGNOSTIC STAT 04/13/2025 5:29 AM EDT from Last 3 Months Results * (ABNORMAL) CBC auto differential (04/13/2025 5:45 AM EDT) WBC 6.0 4.8 - 10.8 K/mcL LAB HEMETOLOGY METHOD 04/13/2025 7:27 AM [facility] RBC 3.70(L) 3.80 - 4.80 M/mcL LAB HEMETOLOGY METHOD 04/13/2025 7:27 AM [facility] Hemoglobin 10.4(L) 11.5 - 16.0 g/dL LAB HEMETOLOGY METHOD 04/13/2025 7:27 AM [facility] Hematocrit 32.9(L) 35.0 - 47.0 % LAB HEMETOLOGY METHOD 04/13/2025 7:27 AM [facility] MCV 88.7 79.0 - 98.0 FL LAB HEMETOLOGY METHOD 04/13/2025 7:27 AM [facility] MCH 28.0 27.0 - 32.0 pcg LAB HEMETOLOGY METHOD 04/13/2025 7:27 AM [facility] MCHC 31.6(L) 32.0 - 37.0 g/dL LAB HEMETOLOGY METHOD 04/13/2025 7:27 AM [facility] RDW 14.4 11.0 - 15.0 % LAB HEMETOLOGY METHOD 04/13/2025 7:27 AM [facility] Platelets 223 130 - 400 K/mcL LAB HEMETOLOGY METHOD 04/13/2025 7:27 AM [facility] MPV 12.4(H) 7.0 - 11.0 FL LAB HEMETOLOGY METHOD 04/13/2025 7:27 AM [facility] NRBC 0.0 <1.0 % LAB HEMETOLOGY METHOD 04/13/2025 7:27 AM [facility] NRBC Absolute 0.00 <0.10 K/mcL LAB HEMETOLOGY METHOD 04/13/2025 7:27 AM [facility] Neutrophils Relative 51.3 % LAB HEMETOLOGY METHOD 04/13/2025 7:27 AM [facility] Lymphocytes Relative 34.6 % LAB HEMETOLOGY METHOD 04/13/2025 7:27 AM [facility] Monocytes Relative 10.6 % LAB HEMETOLOGY METHOD 04/13/2025 7:27 AM [facility] Eosinophils Relative 2.7 % LAB HEMETOLOGY METHOD 04/13/2025 7:27 AM [facility] Basophils Relative 0.5 % LAB HEMETOLOGY METHOD 04/13/2025 7:27 AM [facility] Immature Granulocytes Relative 0.3 % LAB HEMETOLOGY METHOD 04/13/2025 7:27 AM [facility] Neutrophils Absolute 3.05 1.50 - 7.00 K/mcL LAB HEMETOLOGY METHOD 04/13/2025 7:27 AM [facility] Lymphocytes Absolute 2.06 1.00 - 5.00 K/mcL LAB HEMETOLOGY METHOD 04/13/2025 7:27 AM EDT [facility] Monocytes Absolute 0.63 0.20 - 1.00 K/[facility] LAB HEMETOLOGY METHOD 04/13/2025 7:27 AM EDT [facility] Eosinophils Absolute 0.16 0.00 - 0.50 K/[facility] LAB HEMETOLOGY METHOD 04/13/2025 7:27 AM EDT [facility] Basophils Absolute 0.03 0.00 - 0.20 K/[facility] LAB HEMETOLOGY METHOD 04/13/2025 7:27 AM EDT [facility] Immature Granulocytes Absolute 0.02 0.00 - 0.03 K/[facility] LAB HEMETOLOGY METHOD 04/13/2025 7:27 AM [facility] Blood Venous blood specimen / Unknown Venipuncture / Unknown 04/13/2025 5:45 AM EDT 04/13/2025 7:20 AM EDT us Sammi Singh MD LAB BLOOD ORDERABLES Fin al Result [facility] [address] [place] [address], * Basic metabolic panel (04/13/2025 5:45 AM EDT) Sodium 138 133 - 145 mmol/L LAB CHEMISTRY METHOD 04/13/2025 7:50 AM EDT [facility] Potassium 3.9 3.5 - 5.5 mmol/L LAB CHEMISTRY METHOD 04/13/2025 7:50 AM EDT [facility] Chloride 105 96 - 110 mmol/L LAB CHEMISTRY METHOD 04/13/2025 7:50 AM EDT [facility] CO2 28 21 - 32 mmol/L LAB CHEMISTRY METHOD 04/13/2025 7:50 AM EDT [facility] Anion Gap 5 3 - 11 LAB CHEMISTRY METHOD 04/13/2025 7:50 AM EDT [facility] Glucose 84 70 - 100 mg/dL LAB CHEMISTRY METHOD 04/13/2025 7:50 AM EDT [facility] BUN 13 5 - 25 mg/dL LAB CHEMISTRY METHOD 04/13/2025 7:50 AM EDT [facility] Creatinine 0.55 0.50 - 1.10 mg/dL LAB CHEMISTRY METHOD 04/13/2025 7:50 AM EDT [facility] eGFR 127 >=60 mL/min/1. 73m2 LAB CHEMISTRY METHOD 04/13/2025 7:50 AM EDT [facility] Comment:Calculation based on the Chronic Kidney Disease Epidemiology Collaboration (CKD-EPI) equation refit without adjustment for race. BUN/Creatinine Ratio 23.6 LAB CHEMISTRY METHOD 04/13/2025 7:50 AM EDT [facility] Calcium 8.7 8.5 - 10.5 mg/dL LAB CHEMISTRY METHOD 04/13/2025 7:50 AM EDT [facility] Blood Venous blood specimen / Unknown Venipuncture / Unknown 04/13/2025 5:45 AM EDT 04/13/2025 7:20 AM EDT Sammi Singh MD LAB BLOOD ORDERABLES Fin al Result [facility] [address] [place] [address], [place] [phone] * POC , urine manually resulted (04/13/2025 5:29 AM EDT) HCG, Ur POC Negative Negative POC hCG Int QC Pass? Yes Yes Urine Urine specimen obtained by clean catch procedure / Unknown 04/13/2025 5:29 AM EDT Sammi Singh MD POINT OF CARE TEST ENTER /EDIT ORDERABLES Final Result from Last [address] [place] [place] [address] PLAN Care Teams Winding Operator Relationship Specialty Start Date End Date Casey Cabral MD PCP - General Internal Medicine 07/22/13
== END 2025-06-12 10:30 | disposition home or self-care (01) ==
LOC: HO.US 10:29
PROVIDERS: Pathology Anatomic Pathology & Clinical Pathology; PCP Internal Medicine; Visit Provider Internal Medicine
DX: R59.1 Generalized enlarged lymph nodes (principal)
CPT/HCPCS: 38505; 76942; 88173; 88184; 88185; 88300; J2003

== ENCOUNTER → 2025-06-12 10:34 | Outpatient (BNV) | payer OTHER, SELFPAY | PROVIDERS: PCP Internal Medicine; Visit Provider Radiology Diagnostic Radiology | DX: R59.0 Localized enlarged lymph nodes (principal) | CPT/HCPCS: 38505; 76942 ==

== ENCOUNTER 2025-10-11 11:34 | Outpatient (AMB) | payer OTHER, SELFPAY ==
--- OUTSIDE RECORDS SUMMARY | 2025-10-11 11:37 | XMS_ITS | Clinical Summary ---
Author Organization [facility] Address [address] [place] [address] Phone Care Team Providers Care Pairer Inspector Name Role Phone Casey Cabral MD Primary Care Provider [phone] Allergies Active Allergy Reactions Criticality Noted Date [...] length 04/20/2014 Pelvic inflammatory disease 07/22/2013 Immunizations Immunization Administration Dates Next Due DTP 08/19/2000, 7,09/06/1996,07/29,1995 [id number] (Pentacel) 2mo to less than 5yo 09/27/1997,09/06/1996,07/29/1996,05/19 HPV, Quadrivalent 02/18/2011,02/07/2010,09/15/20 07 Hepatitis A Pediatric (Havri x; Vaqta) 12mo to less than 19yo 02/18/2011,02/07/2010 Hepatitis B (Crkopgc-V-Zbogt , Recombivax HB-Adult) 19yo and older 09/27/1997,12/09/1996,1995 [...] on file Sexual Orientation Not on file Last Filed Vital Signs Vital Sign Reading [...] 04/28/2022 Social Influencers of Health Screening 04/28/2022 Depression Screening 10/19/2024 COVID-19 Vaccine ( season) 2025 09/03/2021, 06/21/2021 Influenza Vaccine (#1) 2025 , 12/30/2019, 09/17/2016, Additional history exists DTaP,Tdap,and Td Vaccines (9 - Td or Tdap) 11/26/2030 11/26/2020, 09/17/2016, 09/15/2007, Additional history exists RSV Immunization Adult Patients (1 - 1-dose 75+ series) 2070 HIB Vaccines Completed 09/27/1997, 09/18, 09/06/1996, Additional [...] patient's age to complete this topic [place] [place] [address] [place] [address] Care Teams Pairer Inspector Relationship Specialty Start Date End Date Casey Cabral MD PCP - General Internal Medicine 07/22/13
--- NOTE | 2025-10-11 11:43 | A.OFFVIS_ITS ---
Vital Signs 10/11/25 11:47 Height 5 ft 3 in Weight 150 lb BMI 26.6 BP 110/60 Blood Pressure Location Rt brachial Position Sitting Intake Visit Reasons: BCC Intake Note: Has Nexplanon for 4 years and wants to discuss taking it out. 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 ([place]) Accompanied by: Self / Same As Patient Allergies seafood Allergy (Verified 10/11/25 11:49) Anaphylaxis Medication List - Last Reconciled 10/11/25 by Olivia Rcohe CNM acetaminophen 1,000 mg (2 x 500 mg) PO Q6H PRN etonogestrel (Nexplanon) subdermal ibuprofen 800 mg PO Q8H Is last menstrual period known: Yes Last menstrual period: 10/09/25 Do you need a note to return to daycare/school/sports/work: No HPI HPI BCC: Details: Patient is here because she wants to talk about taking out her Nexplanon she has used this for coming up on 5 years and has liked it as a control method she has been getting her periods pretty much monthly the whole time. She thinks it has been a very good method for her but she wants to have 1 more baby she had C-sections for all of her kids the 1st 1 because she has a hip issue and the baby kept hitting into her bone on her right hip and his head even came out misshapen. And all of the other C-sections were repeat C-sections after that. She came here for the last and there were a lots of challenges getting the records sent to [facility] for the delivery so she knows that it works better to start care from the start where she is going to deliver and that is what she would intend to do. Her children are age 10 8 5 and 4. She has all boys. Her partner has 6 girls from a previous relationship so she knows he can have girls. She is otherwise healthy and has no health problems. She lives in [place] and would want to deliver at [facility]. [facility] Medical History (Updated 10/11/25 @ 12:14 by Olivia Roche CNM) Vitamin D deficiency Lymphadenopathy Oral thrush Mass of right ankle GERD (gastroesophageal reflux disease) Overweight (BMI 25.0-29.9) Depression Insomnia Exertional chest pain Exertional dyspnea Family history of brain aneurysm Recurrent headache Anxiety and depression Surgical History (Updated 10/11/25 @ 12:15 by Olivia Roche CNM) History of delivery Family History Mother No problems noted. Father No problems noted. 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 Assessment & Plan Assessment & Plan (1) Nexplanon in place: Code(s): Z97.5 - Presence of (intrauterine) contraceptive device Category: Social Hx (2) Patient desires : Code(s): Z31.9 - Encounter for procreative management, unspecified Category: Medical (3) History of delivery: Comment: x4; desires 1 more plans removal of Nexplanon and will seek care and delivery at [facility]. Code(s): Z98.891 - History of uterine scar from previous surgery Category: Surgical Plan ---I discussed with pt some of the optimal strategies for planning a , including achieving the best health she can before , including heathy balanced diet, exercise, wt loss to ideal BMI if appropriate, avoiding toxic substances and medications, not smoking, and taking a multivitamin w folic acid daily. Any specific health concerns should be managed before seeking/ putting oneself at risk of pregancy. In addition I reviewed normal cycles, fertility awareness and signs of ovulation, and timing to avoid, and achieve when she feel ready. I also discussed emotional and relationship and support readiness before embarking on . She is ready and has baby fever. I will order vitamins for her which she is happy to take and I recommend she start those now and we will schedule Nexplanon removal at any time though she is requesting it BABAK and her annual exam should be scheduled as well. Discussed that she would need to seek care for the at [facility] early in the she does not have any history of any genetic concerns however she had it a negative experience with the challenge of transferring records so she understands that it is better to seek care from the start of the where she will deliver it would be a 5th so there would be some care concerns that would need to be planned for. Medications: New PNV,calcium [id number]-[id number] acid 27 mg iron- 1 mg ( Vitamins Plus Low Iron) To start now... 1 tab PO DAILY 100 tabs 0RF Coding Level of Care Code New Pt Level 3 (80036) Diagnoses Nexplanon in place Z97.5 Patient desires Z31.9 History of delivery Z98.891
[2025-10-11 11:47] VITALS: BP 110/60; BMI 26.6
== END 2025-10-11 13:57 | disposition home or self-care (01) ==
LOC: HO.HWSM 11:34
PROVIDERS: PCP Internal Medicine; Visit Provider Advanced Practice Midwife
DX: Z97.5 Presence of (intrauterine) contraceptive device (principal); Z31.9 Encounter for procreative management, unspecified; Z98.891 History of uterine scar from previous surgery
CPT/HCPCS: 99203

== ENCOUNTER → 2025-10-11 11:34 | Outpatient (BNVA) | payer OTHER, SELFPAY | PROVIDERS: PCP Internal Medicine; Visit Provider Advanced Practice Midwife | DX: Z31.9 Encounter for procreative management, unspecified (principal); Z97.5 Presence of (intrauterine) contraceptive device; Z98.891 History of uterine scar from previous surgery | CPT/HCPCS: 99202 ==